=== PATIENT | male | born 1960 | race Caucasian/White ===

== ENCOUNTER 2022-08-30 07:19 | Day surgery (SDC) | payer MEDICARE, BC, SELFPAY ==
[2022-08-30] VITALS (15 sets, daily range): BP systolic 151–202; BP diastolic 89–115; PULSE 79–93; RESP 16; TEMP 36.5–36.9; O2SAT 92–99; BMI 26.4
[2022-08-30] MEDS: LACTATED RINGERS 1000 ML 1,000 ML 100 ML IV (07:45)
[2022-08-30] MEDS: SODIUM CHLORIDE 0.9 % (FLUSH) 10 ML SYRINGE IVF (07:45)
--- NOTE | 2022-08-30 07:53 | SUR.PREOP ---
HOME COVID TEST NEGATIVE.
--- NOTE | 2022-08-30 08:12 | W.ANESCHARGE ---
Anesthesia Charges Start Date/Time Anesthesia Start Date: 08/30/22 Anesthesia Start Time: 08:36 Stop Date/Time Anesthesia Stop Date: 08/30/22 Anesthesia Stop Time: 10:09
[2022-08-30] MEDS: CEFAZOLIN 2 GM INJ IVP (08:43)
--- NOTE | 2022-08-30 08:47 | SUR.OPER ---
PATIENT QUESTIONS ANSWERED SATISFACTORILY PREOPERATIVELY. PATIENT BROUGHT TO OR #4 PER CART.? Patient positioned supine on OR #4 bed.? The perioperative?team supported arms bilaterally on arm boards.? Final approval of positioning by surgeon.?
[2022-08-30] MEDS: BUPIVACAINE 0.5% 30 ML 7 ML INJECTION (08:52)
--- NOTE | 2022-08-30 10:07 | P.GSOP_ITS ---
Operative Note Date of procedure: 08/30/22 Pre-op diagnosis: 1. Symptomatic umbilical hernia. Post-op diagnosis: Same Type of Procedure: 1. Open umbilical hernia repair with mesh. Indications: 62-year-old male with history of cardiac transplant 2 years ago was seen in clinic for evaluation of symptomatic umbilical hernia. Patient's hernia was initially noticed it in 2014. Patient stated that the bulge was getting progressively larger and sometimes was painful. In the last several weeks prior to his visit in clinic he had 3 episodes where he had to lie down and reduce the hernia to relieve his pain. Patient denies any nausea or vomiting. On clinical exam patient had an easily noticeable umbilical bulge that was reducible. The fascial defect was palpated at approximately 3 cm. Given his clinical history and his physical exam, an open umbilical hernia repair was recommended. The procedure was discussed in detail. The risks associated the procedure including infection, bleeding, injury to intra-abdominal organs, and postoperative seroma were all discussed with the patient, and he agreed to proceed. Procedure Description: After discussing the risks and benefits of the procedure, the patient signed informed consent.? The operative site was marked and the patient was brought to the operating room and placed on the operating table in supine position.? Care was taken to pad the patient's pressure points.?? The patient was then intubated by anesthesia.?? The operative site was then prepped and draped in the usual sterile fashion.? A time-out was then performed. Local anesthetic was injected at the surgical site. A curvilinear skin incision was made with a scalpel just below umbilicus. Subcutaneous tissue was dissected with electrocautery down to the hernia sac and anterior fascia. The hernia sac was dissected off of the anterior fascia and subcutaneous fat around the fascial defect was dissected away from the fascial defect with cautery. I then developed preperitoneal space for mesh insertion. The fascial defect was approximately 3.3 cm. The hernia sac was entered with Metzenbaum scissors. No intra- abdominal organs were incarcerated in the hernia sac but small intestine was visualized near the fascial opening. The hernia sac was then excised with cautery. The hernia sac was closed with a running locking 2-0 Vicryl suture. Hemostasis throughout the case was achieved with cautery and Vicryl ties. An [address] mesh patch was then inserted into preperitoneal space and secured to the fascia using 0-0 Neurolon interrupted stitches. I examined my closure and no defects were identified between the fascia and the mesh. Fascia was re-approximated over the mesh with a running 2-0 Vicryl stitch. Additional local anesthetic was injected into subcutaneous tissues. Redundant thinned skin was excised with tenotomy scissors. An umbilicus was tacked down with interr upted 3-0 Vicryl stitches. Subdermal layer was closed with interrupted sutures using 3-0 Vicryl. Skin was closed with 4-0 Monocryl using subcuticular stitch. Steri strips were applied over the incision. I then placed a folded sterile 4x4 gauze over the incision and covered it with tape. All counts were correct at the end of the case. Patient tolerated the procedure well and was transferred to PACU without any complications. Findings: 3.3 cm fascial defect repaired with mesh patch. Anesthesia: GETA Surgeon: Shailesh Hernandez MD Estimated blood loss (mL): 5 Condition: stable Disposition: PACU
--- NOTE | 2022-08-30 10:15 | W.ANESCHARGE ---
Anesthesia Charges Start Date/Time Anesthesia Start Date: 08/30/22 Anesthesia Start Time: 08:36 Stop Date/Time Anesthesia Stop Date: 08/30/22 Anesthesia Stop Time: 10:09
[2022-08-30] MEDS: HYDROCODONE-ACETAMIN 5-325 MG 1 TAB PO (11:45)
== END 2022-08-30 12:20 | disposition home or self-care (01) ==
PROVIDERS: PCP Family Medicine; Visit Provider Surgery
PROC: (CPT 49593; principal; 2022-08-30 08:30)
DX: K42.9 Umbilical hernia without obstruction or gangrene (principal)
CPT/HCPCS: 49593; 00830; A9270; C1781; J0330; J0690; J2250; J2704; J2930; J3010; J3490; J7120

== ENCOUNTER 2023-03-19 06:55 | Emergency (ER) | payer MEDICARE, BC, SELFPAY ==
[2023-03-19 07:03] VITALS: BP 102/65; PULSE 80; RESP 17; TEMP 36.4; O2SAT 99; BMI 26.6
--- NOTE | 2023-03-19 07:21 | ED_ITS ---
HPI - General Adult General Chief complaint: Extremity Pain/Injury, Lower Stated complaint: left foot infection Time Seen by Provider: 03/19/23 07:14 History of Present Illness HPI narrative: Patient is a 63-year-old gentleman who presents with an 18 hour history of pain in the 1st MTP of the left foot. He has had no recent injuries no fevers no chills no night sweats. The pain is accompanied by redness and swelling of the joint. Patient has had no similar symptoms previously but is a heart transplant patient on 5 mg of prednisone as well as tacrolimus. Patient is otherwise been in his usual state of health with no major concerns. Related Data Home Medications Medication Instructions Recorded Confirmed acetaminophen 500 mg capsule 500 mg PO Q6H PRN 08/27/22 08/30/22 aspirin 81 mg capsule 81 mg PO DAILY 08/27/22 08/30/22 clonidine 0.3 mg/24 hr weekly 1 patch transdermal QWEEK 08/27/22 08/30/22 transdermal patch ([id number]-ZSE-6) famotidine 20 mg tablet 20 mg PO DAILY 08/27/22 08/30/22 levothyroxine 50 mcg capsule 50 mcg PO DAILY 08/27/22 08/30/22 mycophenolate mofetil 250 mg 750 mg PO BID 08/27/22 08/30/22 capsule (CellCept) posaconazole 100 mg tablet,delayed 200 mg PO DAILY 08/27/22 08/30/22 release (Noxafil) prednisolone 5 mg tablet 5 mg PO DAILY 08/27/22 08/30/22 sirolimus 0.5 mg tablet (Rapamune) 1 mg PO DAILY 08/27/22 08/30/22 sulfamethoxazole 400 1 tab PO TID 08/27/22 08/30/22 mg-trimethoprim 80 mg tablet (Bactrim) tacrolimus 0.5 mg capsule, 0.5 mg PO BID 08/27/22 08/30/22 immediate-release (Prograf) Previous Rx's Medication Instructions Recorded cephalexin 500 mg capsule 500 mg PO BID #20 caps 08/30/22 hydrocodone 5 mg-acetaminophen 325 1 tab PO Q6H PRN pain #25 tabs 08/30/22 mg tablet Allergies Allergy/AdvReac Type Severity Reaction Status Date / Time lisinopril Allergy Unknown Verified 08/30/22 07:54 Review of Systems Status of ROS: Reports: 10 or more systems reviewed and unremarkable except as noted in History and below 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 EYES: No scleral icterus. LYMPH: No supraclavicular or cervical lymphadenopathy. SKIN: Visible skin seen during exam normal or with benign process only. EXT: Redness and pain as well as mild swelling noted in the 1st MTP left foot. No other significant findings. HEART: Regular rate and rhythm with no murmurs, rubs, or gallops. LUNGS: Clear to auscultation bilaterally with no crackles or wheezes. ABD: Soft, non tender, non distended. PSYCH: Good eye contact, speech is not pressured. Const: Vital Signs, click to edit/add: Vital Signs - 24 hr 03/19/23 07:03 Temperature 97.5 F L Pulse Rate [Pulse Oximeter] 80 Respiratory Rate 17 Blood Pressure [Ri ght Upper Arm] 102/65 Pulse Oximetry 99 Oxygen Delivery Me thod Room Air Course Course ED Course: Patient seen examined. Vital Signs Vital signs: Initial Vital Signs Temperature 97.5 F L 03/19/23 07:03 Temperature Source Temporal Artery Scan 03/19/23 07:03 Pulse Rate 80 03/19/23 07:03 Respiratory Rate 17 03/19/23 07:03 Blood Pressure 102/65 03/19/23 07:03 Blood Pressure Mean 77 03/19/23 07:03 Pulse Oximetry 99 03/19/23 07:03 Oxygen Delivery Method Room Air 03/19/23 07:03 Vital Signs Temperature 97.5 F L 03/19/23 07:03 Pulse Rate 80 03/19/23 07:03 Respiratory Rate 17 03/19/23 07:03 Blood Pressure 102/65 03/19/23 07:03 Pulse Oximetry 99 03/19/23 07:03 Oxygen Delivery Method Room Air 03/19/23 07:03 Temperature 97.5 F L 03/19/23 07:03 Pulse Rate 80 03/19/23 07:03 Respiratory Rate 17 03/19/23 07:03 Blood Pressure 102/65 03/19/23 07:03 Pulse Oximetry 99 03/19/23 07:03 Oxygen Delivery Method Room Air 03/19/23 07:03 Medical Decision Making MDM Narrative Medical decision making narrative: Patient is 63-year-old gentleman who presents with gout in the 1st MTP the left foot. No signs of infection. Patient is on low-dose prednisone as well as his other rejection regiment. Patient will be treated with increasing prednisone to 20 mg twice daily for 5 days before returning to 5 mg daily. I did recommend follow-up with his transplant team if symptoms return. All questions were answered. Discharge Plan Discharge Clinical Impression: Gout Patient Disposition: Home, Self-Care Condition: Stable Instructions: Gout (ED) Additional Instructions: Prednisone as directed Follow-up with your doctor as needed Tylenol as needed for pain. Activity Level: No Restrictions Discharge Diet: Regular Prescriptions: No Action acetaminophen 500 mg capsule 500 mg PO Q6H PRN aspirin 81 mg capsule 81 mg PO DAILY clonidine [Xajhcadn-FRC-7] 0.3 mg/24 hr patch weekly 1 patch transdermal QWEEK famotidine 20 mg tablet 20 mg PO DAILY levothyroxine 50 mcg capsule 50 mcg PO DAILY mycophenolate mofetil [CellCept] 250 mg capsule 750 mg PO BID posaconazole [Noxafil] 100 mg tablet,delayed release (DR/EC) 200 mg PO DAILY prednisolone 5 mg tablet 5 mg PO DAILY Patient Comments: Take with 3 (1mg tab of prednisone) to equal 8mg. sirolimus [Rapamune] 0.5 mg tablet 1 mg PO DAILY sulfamethoxazole-trimethoprim [Bactrim] 400-80 mg tablet 1 tab PO TID tacrolimus [Prograf] 0.5 mg capsule 0.5 mg PO BID hydrocodone-acetaminophen 5-325 mg tablet 1 tab PO Q6H PRN (Reason: pain) Qty: 25 0RF cephalexin 500 mg capsule 500 mg PO BID Qty: 20 0RF Follow Up/Referrals: Kaushal Salomon MD [Primary Care Provider] - Stand Alone Forms: [facility] Info Instructions
== END 2023-03-19 07:44 | disposition home or self-care (01) ==
PROVIDERS: Emergency Provider Internal Medicine; PCP Family Medicine
DX: M10.9 Gout, unspecified (principal)
CPT/HCPCS: 99283

== ENCOUNTER 2023-09-26 17:50 | Emergency (ER) | payer MEDICARE, BC, SELFPAY ==
[2023-09-26 18:01] VITALS: BP 137/73; PULSE 91; RESP 18; TEMP 36.4; O2SAT 97; BMI 26.5
--- NOTE | 2023-09-26 18:44 | ED.GENADULT ---
HPI - General Adult General Chief complaint: Extremity Pain/Injury, Lower Stated complaint: Both feet gout-low grade temp Time Seen by Provider: 09/26/23 18:14 History of Present Illness HPI narrative: This 63-year-old male comes in with pain and swelling with erythema in both great toes. He does have a history of gout. These symptoms have arisen over the past couple days but he states that he has been feeling poorly for almost a couple weeks since discontinuing prednisone. He has been on prednisone long-term because of a heart transplant that occurred 3 years ago. He was instructed to discontinue prednisone in preparation for a heart biopsy and a bunch of labs. The patient was scheduled to have this done 2 days from now but he has canceled these plans because he is not feeling well. He states that he has poor appetite. He is feeling tired. He does have some agitation or anxiety in word LEEP. Related Data Home Medications Medication Instructions Recorded Confirmed acetaminophen 500 mg capsule 500 mg PO Q6H PRN 08/27/22 08/30/22 aspirin 81 mg capsule 81 mg PO DAILY 08/27/22 09/26/23 clonidine 0.3 mg/24 hr weekly 1 patch transdermal QWEEK 08/27/22 09/26/23 transdermal patch (Rypcmteg-WQW-9) famotidine 20 mg tablet 20 mg PO DAILY 08/27/22 09/26/23 levothyroxine 50 mcg capsule 50 mcg PO DAILY 08/27/22 09/26/23 mycophenolate mofetil 250 mg 750 mg PO BID 08/27/22 09/26/23 capsule (CellCept) posaconazole 100 mg tablet,delayed 200 mg PO DAILY 08/27/22 09/26/23 release (Noxafil) prednisolone 5 mg tablet 5 mg PO DAILY 08/27/22 08/30/22 sirolimus 0.5 mg tablet (Rapamune) 1 mg PO DAILY 08/27/22 08/30/22 sulfamethoxazole 400 1 tab PO TID 08/27/22 08/30/22 mg-trimethoprim 80 mg tablet (Bactrim) tacrolimus 0.5 mg capsule, 0.5 mg PO BID 08/27/22 09/26/23 immediate-release (Prograf) losartan 50 mg tablet 50 mg PO DAILY 09/26/23 09/26/23 Previous Rx's Medication Instructions Recorded cephalexin 500 mg capsule 500 mg PO BID #20 caps 08/30/22 hydrocodone 5 mg-acetaminophen 325 1 tab PO Q4-6H PRN pain #15 tabs 09/26/23 mg tablet methylprednisolone 4 mg tablets in See Rx Instructions PO .COMPLEX 09/26/23 a dose pack (Medrol (Max)) #21 ea Allergies Allergy/AdvReac Type Severity Reaction Status Date / Time lisinopril Allergy Unknown Verified 08/30/22 07:54 Review of Systems Status of ROS: Reports: 10 or more systems reviewed and unremarkable except as noted in History and below Narrative: Constitutional: No fevers, no weight gain or loss. Eyes: No discharge. No vision changes. HENT: No congestion, no sore throat, no ear pain. Cardiovascular: No chest pain, no palpitations. Respiratory: No shortness of breath, no wheezes, no cough. Gastrointestinal: No abdominal pain, no vomiting, no diarrhea. Genitourinary: No dysuria, no hematuria. Musculoskeletal: Normal range of motion. Pain with swelling and redness in both great toes. Skin: No rashes, no pruritis. Neurological: No dizziness, weakness, sensory change, speech change. Endo/Heme/Allergies: No bruising or bleeding. No polydipsia. Pysch: no suicidality, no anxiety, no insomnia. All other systems reviewed and are negative. [facility] Medical History Chronic kidney disease, stage 4 (severe) ?N18.4 - Chronic kidney disease, stage 4 (severe) (ICD-10) Hyperlipidemia ?E78.5 - Hyperlipidemia, unspecified (ICD-10) 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 - Pulmonary mucormycosis (ICD-10) Surgical History Status post heart transplant ?Z94.1 - Heart transplant status (ICD-10) Social History Smoking Status: Former smoker What tobacco products do you use: cigars Do you use any of these nicotine containing products: None How often do you have a drink containing alcohol: never How often do you have six or more drinks on one occasion: Never AUDIT-C Alcohol total score: 0 Non-prescribed substance use: denies use Caffeine: Yes (SODA & OFFEE DAILY) Exam Narrative: Exam Narrative: Constitutional: Well-developed, well-nourished, no acute distress. HEENT: Normocephalic, atraumatic. Neck: Normal range of motion. Nontender. Supple. Heart: Regular. No murmurs. Normal rate. Intact distal pulses. Lungs: Clear to auscultation. No chest discomfort. No wheezes, rhonchi, or rales. Abdomen: Normal bowel sounds. Nontender. No rebound tenderness. Genitalia: Deferred. Back: No midline tenderness. Normal range of motion. Extremities: Normal range of motion. The left great toe has erythema with swelling and the right great toe has swelling but not much erythema. Skin: Intact. No rash. Warm. No erythema or pallor. Neurologic: No altered sensation. No weakness. Alert and oriented. Psychiatric: No suicidality. No anxiety or depression. No insomnia. Nursing notes and vitals signs are reviewed. Const: Vital Signs, click to edit/add: Vital Signs - 24 hr 09/26/23 18:01 Temperature 97.5 F L Pulse Rate [Right Pulse Oximeter] 91 Respiratory Rate 18 Blood Pressure [Ri ght Upper Arm] 137/73 Pulse Oximetry 97 Oxygen Delivery Me thod Room Air Course Vital Signs Vital signs: Initial Vital Signs Temperature 97.5 F L 09/26/23 18:01 Temperature Source Temporal Artery Scan 09/26/23 18:01 Pulse Rate 91 09/26/23 18:01 Respiratory Rate 18 09/26/23 18:01 Blood Pressure 137/73 09/26/23 18:01 Blood Pressure Mean 94 09/26/23 18:01 Blood Pressure Position Sitting 09/26/23 18:01 Pulse Oximetry 97 09/26/23 18:01 Oxygen Delivery Method Room Air 09/26/23 18:01 Vital Signs Temperature 97.5 F L 09/26/23 18:01 Pulse Rate 91 09/26/23 18:01 Respiratory Rate 18 09/26/23 18:01 Blood Pressure 137/73 09/26/23 18:01 Pulse Oximetry 97 09/26/23 18:01 Oxygen Delivery Method Room Air 09/26/23 18:01 Temperature 97.5 F L 09/26/23 18:01 Pulse Rate 91 09/26/23 18:01 Respiratory Rate 18 09/26/23 18:01 Blood Pressure 137/73 09/26/23 18:01 Pulse Oximetry 97 09/26/23 18:01 Oxygen Delivery Method Room Air 09/26/23 18:01 Medical Decision Making MDM Narrative Medical decision making narrative: This 63-year-old male comes in with nonspecific complaints except for specifying symptoms of gout in both of his great toes. He does have a history of gout and on exam his symptoms appear to be a gout flare up. He does not report any injury event. He has other nonspecific complaints that in my opinion seem to be related to discontinuing prednisone. He states that these symptoms began soon after stopping prednisone in preparation for some tests. He has canceled these appointments and comes in for treatment and evaluation. He does arrive with normal vital signs. I did discuss lab and imaging options but indicated that it seems likely that he has some adrenal insufficiency and is hungry so to speak for steroid. This happens to be a typical treatment for his gout symptoms. In a process of shared decision making the patient declined any labs or imaging at this time. He did receive an oral dose of dexamethasone 10 mg and prescriptions are provided for Medrol Dosepak and [place]. I did describe signs and symptoms that would indicate a need for return and re-evaluation. Discharge Plan Discharge Additional Instructions: Take medication as prescribed. Follow up with MD for ongoing management. Return if symptoms are persistent or worsening. Prescriptions: New hydrocodone-acetaminophen 5-325 mg tablet 1 tab PO Q4-6H PRN (Reason: pain) Qty: 15 0RF methylprednisolone [Medrol (Max)] 4 mg tablets,dose pack See Rx Instructions .ROUTE .COMPLEX Qty: 21 0RF Rx Instructions: orally per package directions No Action acetaminophen 500 mg capsule 500 mg PO Q6H PRN aspirin 81 mg capsule 81 mg PO DAILY clonidine [Ktcmhkvb-CVA-0] 0.3 mg/24 hr patch weekly 1 patch transdermal QWEEK famotidine 20 mg tablet 20 mg PO DAILY levothyroxine 50 mcg capsule 50 mcg PO DAILY mycophenolate mofetil [CellCept] 250 mg capsule 750 mg PO BID posaconazole [Noxafil] 100 mg tablet,delayed release (DR/EC) 200 mg PO DAILY prednisolone 5 mg tablet 5 mg PO DAILY Patient Comments: Take with 3 (1mg tab of prednisone) to equal 8mg. sirolimus [Rapamune] 0.5 mg tablet 1 mg PO DAILY sulfamethoxazole-trimethoprim [Bactrim] 400-80 mg tablet 1 tab PO TID tacrolimus [Prograf] 0.5 mg capsule 0.5 mg PO BID cephalexin 500 mg capsule 500 mg PO BID Qty: 20 0RF losartan 50 mg tablet 50 mg PO DAILY Follow Up/Referrals: Kaushal Salomon MD [Primary Care Provider] - Stand Alone Forms: [employer] Info Instructions
[2023-09-26] MEDS: dexAMETHasone 10 MG/ML inj PO (18:56)
== END 2023-09-26 19:05 | disposition home or self-care (01) ==
PROVIDERS: Emergency Provider Emergency Medicine Emergency Medical Services; PCP Family Medicine
DX: M10.9 Gout, unspecified (principal)
CPT/HCPCS: 99283; 99284; J1100

== ENCOUNTER 2024-08-30 17:01 | Emergency (ER) | payer MEDICARE, BC, SELFPAY ==
[2024-08-30 17:04] VITALS: BP 144/87; PULSE 89; RESP 18; TEMP 36.6; O2SAT 98; BMI 26.4
--- OUTSIDE RECORDS SUMMARY | 2024-08-30 17:39 | XMS_ITS | Encounter Summary ---
Author Organization [facility] Address [address] [place] [address] Care Team Providers Care Ux Design Manager Name Role Phone Elsewhere, Pcp Primary Care Provider Unavailabl e Reason for Visit * Reason Onset Date Comments Med Refill 07/18/2024 Encounter Details Date Type Department Care Team (Late st Contact Info) Description 07/18/2024 [facility] [place], [place] [address] [place] [phone] Audrey Guerrero R.N. [address] [place] [phone] Med Refill Social History Tobacco Use Types Packs/Day Years Used Date Smoking Tobacco: Former Cigarettes Q uit: 04/17/2018 Smokeless Tobacco: Never Alcohol Use Standard Drinks/Week Comments Not Currently 0 (1 standard drink = 0.6 oz pur e alcohol) [facility] Utilities Answer Date Recorded In the past 12 months has th e electric, gas, oil, or water [employer] threatened to shut off services in your home? No 09/28/2023 Humiliation, Afraid, Rape, and Kick questionnair e Answer Date Recorded Within the last year, have y ou been afraid of your partner or ex-partner? No 08/20/2022 Within the last year, have y ou been humiliated or emotionally abused in other ways by your partner or ex-partner? No Within the last year, have y ou been kicked, hit, slapped, or otherwise physically hurt by your partner or ex-partner? No 08/20/2022 Within the last year, have y ou been raped or forced to have any kind of sexual activity by your partner or ex-partner? No 08/20/2022 Social Connection and Isolat ion Panel [NHANES] Answer Date Recorded In a typical week, how many times do you talk on the phone with family, friends, or neighbors? More than three times a week 08/20/2022 How often do you get togethe r with friends or relatives? Once a week 08/20/2022 How often do you attend chur ch or hinduism services? Never 08/20/2022 Do you belong to any clubs o r organizations such as orthodox groups, unions, fraternal or athletic groups, or school groups? No 08/20/2022 How often do you attend meet ings of the clubs or organizations you belong to? Never 08/20/2022 Are you , , di vorced, , never , or living with a partner? 08/20/2022 AUDIT-C Answer Date Recorded Q1: How often do you have a drink containing alc ohol? Never 08/20/2022 Average Number of Drinks Not on file 023 Frequency of Binge Drinking Not on file 08/04 Overall Financial Resource Strain (CARDIA) Answe r Date Recorded How hard is it for you to pa y for the very basics like food, housing, medical care, and heating? Not very hard 08/20/2022 PHQ-2 Answer Date Recorded PHQ-2 Score 0 09/30/2021 [facility] of Occupat ional Health - Occupational Stress Questionnaire Answer Date Recorded Do you feel stress - tense, restless, nervous, or anxious, or unable to sleep at night because your mind is troubled all the time - these days? Not at all 08/20/2022 Exercise Vital Sign Answer Date Recorde d On average, how many days pe r week do you engage in moderate to strenuous exercise (like a brisk walk)? 4 days 09/28/2023 On average, how many minutes do you engage in exercise at this level? 40 min 09/28/2023 Hunger Vital Sign Answer Date Recorded Within the past 12 months, y ou worried that your food would run out before you got the money to buy more. Never true 09/28/19 24 Within the past 12 months, t he food you bought just didn't last and you didn't have money to get more. Never true 09/28/2023 PRAPARE - Transportation Answer Date Re corded In the past 12 months, has l ack of transportation kept you from medical appointments or from getting medications? No 09/02 In the past 12 months, has l ack of transportation kept you from meetings, work, or from getting things needed for daily living? No 09/28/2023 Depression Answer Date Recor ded PHQ-9 Total Score (max 27) 1 03/06 Nutrition Answer Date Recorded On average, how many serving s of fruits and vegetables do you eat per day (serving size is equal to 1 cup or approximately the size of a tennis ball)? 0-2 09/28/2023 Dental Answer Date Recorded Dental: Regular Dentist Yes 06/01/20 Employment Answer Date Recorded Employment status Retired 09/28/2023 Housing Stability Answer Date Recorded What is your living situation today? I have a [facility] place to live 09/28/2023 Education Answer Date Recorded What is the highest level of school you have completed or the highest degree you have received? Associate degree: occupational, technical, or vocational program 03/16/2020 Sex and Gender Information Value Date Recorded Sex Assigned at Male 03/23/2021 4:58 PM CDT Legal Sex Male 8:21 PM APPLIANCE TESTER Gender Identity Male 06/01/2018 2:20 PM APPLIANCE TESTER Sexual Orientation Straight 06/01/2018 2: 20 PM APPLIANCE TESTER documented as of this encounter Plan of Treatment Upcoming Encounters Date Type Department Care Team (Late st Contact Info) Description 09/11/2024 10:20 AM CDT Appointment Department of Laboratory Medicine in [place] [address] [place] [address] Jesus Alberto Wong M.D. [address] [place] [address] 09/21/2024 10:00 AM CDT Nurse Only Eduard Sanderson [place] [facility] in [place], [place] [address] [place] [address] Anderson Hewitt M.D. [address] [place] [phone] Audrey Guerrero R.N. [address] [place] [phone] 09/25/2024 6:20 AM CDT Lab Department of Laboratory Medicine and Pathology, [place], [place] [address] [place] [address] Anderson Hewitt M.D. [address] [place] [phone] 09/25/2024 6:30 AM CDT Lab Department of Laboratory Medicine and Pathology, [facility] in [place], [place] [address] [place] [address] Anderson Hewitt M.D. [address] [place] [phone] 09/25/2024 6:40 AM CDT Lab Department of Laboratory Medicine and Pathology, [facility] in [place], [place] [address] [place] [address] Anderson Hewitt M.D. [address] [place] [phone] 09/25/2024 7:00 AM CDT Appointment Department of Radiology, [facility], in [place], [place] [address] [place] [address] Anderson Hewitt M.D. [address] [place] [phone] 09/25/2024 8:00 AM CDT Appointment Department of Radiology, [facility], in [place], [place] [address] [place] [address] Anderson Hewitt M.D. [address] [place] [phone] 09/25/2024 10:20 AM CDT Ancillary Procedure Department of Cardiovascular Medicine in [place], [place] [address] [place] [address] Anderson Hewitt M.D. [address] [place] [phone] 09/25/2024 2:45 PM CDT Appointment Department of Cardiovascular Diseases in [place], [place] [address] [place] [address] Anderson Hewitt M.D. [address] [place] [phone] 09/26/2024 8:50 AM CDT Appointment Department of Cardiovascular Diseases in [place], [place] [address] [place] [address] Anderson Hewitt M.D. [address] [place] [phone] 09/26/2024 2:15 PM CDT [facility] in [place], [place] [address] [place] [address] Anderson Hewitt M.D. [address] [place] [phone] 10/17/2024 10:40 AM CDT Comprehensive Visit Department of Dermatology in [place], [place] [address] [place] [address] Zoya Chery M.D. [address] [place] [address] 10/24/2024 10:30 AM CDT Appointment Department of Laboratory Medicine in [address] [address] Anderson Hewitt M.D. 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
--- OUTSIDE RECORDS SUMMARY | 2024-08-30 17:39 | XMS_ITS | Encounter Summary ---
Author Organization [facility] Address [address] [place] [address] Care Team Providers Care Kitchen Steward/Stewardess Name Role Phone Elsewhere, Pcp Primary Care Provider Unavailabl e Encounter Details Date Type Department Care Team (Late st Contact Info) Description 07/18/2024 Orders Only Eduard Sanderson [place] [facility] in [place], [place] [address] [place] [phone] Audrey Guerrreo R.N. [address] [place] [phone] Transplant Heart (HCC) (Primary Dx) Social History Tobacco Use Types Packs/Day Years Used Date Smoking Tobacco: Former Cigarettes Q uit: 04/17/2018 Smokeless Tobacco: Never Alcohol Use Standard Drinks/Week Comments Not Currently 0 (1 standard drink = 0.6 oz pur e alcohol) [facility] Utilities Answer Date Recorded In the past 12 months has th e electric, gas, oil, or water company threatened to shut off services in your [...] often do you attend chur ch or anabaptist services? Never 08/20/2022 Do you belong to any clubs o r organizations such as caodaism groups, unions, fraternal or athletic groups, or [...] Answer Date Recorded PHQ-2 Score 0 09/30/2021 [facility] of Occupat ional Health - Occupational Stress [...] your living situation today? I have a [facility] place to live 09/28/2023 Education Answer Date Recorded What is the highest level of school you have completed or the highest degree you have received? Associate degree: occupational, technical, or vocational program 03/16/2020 Sex and Gender Information Value Date Recorded Sex Assigned at Male 03/23/2021 4:58 PM CDT Legal Sex Male 8:21 PM CRANIOLOGIST Gender Identity Male 06/01/2018 2:20 PM CRANIOLOGIST Sexual Orientation Straight 06/01/2018 2: 20 PM CRANIOLOGIST documented as of this encounter Plan of Treatment Upcoming Encounters Date Type Department Care Team (Late st Contact Info) Description 09/11/2024 10:20 AM CDT Appointment Department of Laboratory Medicine in [address] [address] Jesus Alberto Wong M.D. [address] [place] [address] 09/21/2024 10:00 AM CDT Nurse Only [facility] in [place], [place] [address] [place] [address] Anderson Hewitt M.D. [address] [place] [phone] Audrey Guerrero R.N. [address] [place] [phone] 09/25/2024 6:20 AM CDT Lab Department of Laboratory Medicine and Pathology, [place], [place] [address] [place] [address] Anderson Hewitt M.D. [address] [place] [phone] 09/25/2024 6:30 AM CDT Lab Department of Laboratory Medicine and Pathology, [facility] in [place], [place] [address] [place] [address] Anderson Hewitt M.D. [address] [place] [phone] 09/25/2024 6:40 AM CDT Lab Department of Laboratory Medicine and Pathology, [facility] in [place], [place] [address] [place] [address] Anderson Hewitt M.D. [address] [place] [phone] 09/25/2024 7:00 AM CDT Appointment Department of Radiology, [facility] in [place], [place] [address] [place] [address] Anderson Hewitt M.D. [address] [place] [phone] 09/25/2024 8:00 AM CDT Appointment Department of Radiology, [facility], in [place], [place] [address] [place] [address] Anderson Hewitt M.D. [address] [place] [phone] 09/25/2024 10:20 AM CDT Ancillary Procedure Department of Cardiovascular Medicine in [place], [place] [address] [place] [phone] Anderson Hewitt M.D. [address] [place] [phone] 09/25/2024 2:45 PM CDT Appointment Department of Cardiovascular Diseases in [place], [place] [address] [place] [address] Anderson Hewitt M.D. [address] [place] [phone] 09/26/2024 8:50 AM CDT Appointment Department of Cardiovascular Diseases in [place], [place] [address] [place] [phone] Anderson Hewitt M.D. [address] [place] [phone] 09/26/2024 2:15 PM CDT [facility] in [place], [place] [address] [place] [phone] Anderson Hewitt M.D. [address] [place] [phone] 10/17/2024 10:40 AM CDT Comprehensive Visit Department of Dermatology in [place], [place] [address] [place] [phone] Zoya Chery M.D. [address] [place] [phone] 10/24/2024 10:30 AM CDT Appointment Department of Laboratory Medicine in [place], [place] [address] [facility] [place] [address] Anderson Hewitt M.D. [address] [place] [address] documented as of this encounter Results * Posaconazole (Noxafil), Level (08/24/2024 11:22 AM CRANIOLOGIST) Posaconazole, S 2340 >700 ng/mL 08/26/2024 2:00 PM CRANIOLOGIST [facility] Comment: ----ADDITIONAL INFORMATION---- This test was developed and its performance characteristics determined by [facility] in a manner consistent with CLIA requirements. This test has not been cleared or approved by the U.S. Food and Drug Administration. Blood (Blood, Venous) 08/24/2024 11:22 AM CRANIOLOGIST 08/25/2024 7:33 AM CRANIOLOGIST us Jesus Alberto Wong M.D. LAB BLOOD NON ADD-ON Final Result [facility] [address] [place] [address] [facility] [address] [place] [address] [place] [address] documented in this encounter Visit Diagnoses Diagnosis Transplant Heart (HCC)- Primary documented in this encounter Additional Health Concerns Infection Onset Date Last Indicated Resolved Time Protective Environment 10/12/2022 10/12/2022 Assessment Noted Time PHQ-9 Depression Total Score: 1 03/06/20 21 2:01 PM CDT documented as of this encounter Care Teams Kitchen Steward/Stewardess Relationship Specialty Start Date End Date Elsewhere, Pcp PCP - General Family Medicine 02/20/21 documented as of this encounter
--- OUTSIDE RECORDS SUMMARY | 2024-08-30 17:39 | XMS_ITS | Encounter Summary ---
Author Organization [facility] Address [address] [place] [address] Care Team Providers Care Mill Tender Warm Up Name Role Phone Elsewhere, Pcp Primary Care Provider Unavailabl e Encounter Details Date Type Department Care Team (Late st Contact Info) Description 07/11/2024 Orders Only Eduard Sanderson [place] [facility]eneration in [place], [place] [address] [place] [phone] Audrey Guerrero R.N. [address] [place] [phone] Transplant Heart (HCC) (Primary Dx) Social History Tobacco Use Types Packs/Day Years Used Date Smoking Tobacco: Former Cigarettes Q uit: 04/17/2018 Smokeless Tobacco: Never Alcohol Use Standard Drinks/Week Comments Not Currently 0 (1 standard drink = 0.6 oz pur e alcohol) [facility] Utilities Answer Date Recorded In the past [...] any clubs o r organizations such as confucianism groups, unions, fraternal or athletic groups, or [...] Answer Date Recorded PHQ-2 Score 0 09/30/2021 [facility] of Occupat ional Health - Occupational Stress [...] your living situation today? I have a [facility] place to live 09/28/2023 Education Answer Date Recorded What is the highest level of school you have completed or the highest degree you have received? Associate degree: occupational, technical, or vocational program 03/16/2020 Sex and Gender Information Value Date Recorded Sex Assigned at Male 03/23/2021 4:58 PM CDT Legal Sex Male 8:21 PM BANK SALES AND SERVICE MANAGER Gender Identity Male 06/01/2018 2:20 PM BANK SALES AND SERVICE MANAGER Sexual Orientation Straight 06/01/2018 2: 20 PM BANK SALES AND SERVICE MANAGER documented as of this encounter Plan of Treatment Upcoming Encounters Date Type Department Care Team (Late st Contact Info) Description 09/11/2024 10:20 AM CDT Appointment Department of Laboratory Medicine in [address] [address] Jesus Alberto Wong M.D. [address] [place] [address] 09/21/2024 10:00 AM CDT Nurse Only Eduard murguia [facility] in [place], [place] [address] [place] [address] Anderson Hewitt M.D. [address] [place] [phone] Audrey Guerrero R.N. [address] [place] [phone] 09/25/2024 6:20 AM CDT Lab Department of Laboratory Medicine and Pathology, [place], [place] [address] [place] [address] Anderson Hewitt M.D. [address] [place] [phone] 09/25/2024 6:30 AM CDT Lab Department of Laboratory Medicine and Pathology, [facility] in [place], [place] [address] [place] [address] Anderson Hewitt M.D. [address] [place] [phone] 09/25/2024 6:40 AM CDT Lab Department of Laboratory Medicine and Pathology, [facility] in [place], [place] [address] [place] [address] Anderson Hewitt M.D. [address] [place] [phone] 09/25/2024 7:00 AM CDT Appointment Department of Radiology, [facility] in [place], [place] [address] [place] [address] Anderson Hewitt M.D. [address] [place] [phone] 09/25/2024 8:00 AM CDT Appointment Department of Radiology, [facility], in [place], [place] [address] [place] [address] Anderson Hewitt M.D. [address] [place] [phone] 09/25/2024 10:20 AM CDT Ancillary Procedure Department of Cardiovascular Medicine in [place], [place] [address] [phone] Anderson Hewitt M.D. [address] [place] [phone] 09/25/2024 2:45 PM CDT Appointment Department of Cardiovascular Diseases in [place], [place] [address] [place] [address] Anderson Hewitt M.D. [address] [place] [phone] 09/26/2024 8:50 AM CDT Appointment Department of Cardiovascular Diseases in [place], [place] [address] [phone] Anderson Hewitt M.D. [address] [place] [phone] 09/26/2024 2:15 PM CDT [facility] in [place], [place] [address] [phone] Anderson Hewitt M.D. [address] [place] [phone] 10/17/2024 10:40 AM CDT Comprehensive Visit Department of Dermatology in [place], [place] [address] [phone] Zoya Chery M.D. [address] [place] [phone] 10/24/2024 10:30 AM CDT Appointment Department of Laboratory Medicine in [place] [address] [place] [phone] Anderson Hewitt M.D. [address] [place] [address] documented as of this encounter Results * Tacrolimus, Trough (07/25/2024 10:39 AM BANK SALES AND SERVICE MANAGER) Tacrolimus, Trough 5.3 5.0-15.0 (Trough) ng/mL 07/26/2024 10:37 AM BANK SALES AND SERVICE MANAGER [facility] Comment: ----ADDITIONAL INFORMATION---- Target steady-state trough concentrations vary depending on the type of transplant, concomitant immunosuppression, clinical/institutional protocols, and time post-transplant. Results should be interpreted in conjunction with this clinical information and any physical signs/symptoms of rejection/toxicity. Testing performed by Liquid Chromatography-Tandem Mass Spectrometry (LC-MS/MS). This test was developed and its performance characteristics determined by [facility] in a manner consistent with CLIA requirements. This test has not been cleared or approved by the U.S. Food and Drug Administration. Blood (Blood, Venous) 07/25/2024 10:39 AM BANK SALES AND SERVICE MANAGER 07/26/2024 7:30 AM BANK SALES AND SERVICE MANAGER us Dom Muller M.D. LAB BLOOD NON ADD-ON Jerica l Result [facility] [address] [place] [address] [facility] [address] [place] [address] [place] [id number] * (ABNORMAL) Basic Metabolic Panel (07/25/2024 10:39 AM BANK SALES AND SERVICE MANAGER) Potassium, P 5.4(H) 3.6 - 5.2 mmol/L 07/25/2024 4:03 PM BANK SALES AND SERVICE MANAGER [facility] Sodium, P 136 135 - 145 mmol/L 07/25/2024 4:03 PM BANK SALES AND SERVICE MANAGER [facility] Chloride, P 105 98 - 107 mmol/L 07/25/2024 4:03 PM BANK SALES AND SERVICE MANAGER [facility] Bicarbonate, P 21(L) 22 - 29 mmol/L 07/25/2024 4:03 PM BANK SALES AND SERVICE MANAGER [facility] Anion Gap, P 10 7 - 15 07/25/2024 4:03 PM BANK SALES AND SERVICE MANAGER [facility] BUN (Blood Urea Nitrogen), P 33(H) 8 - 24 mg/dL 07/25/2024 4:03 PM BANK SALES AND SERVICE MANAGER [facility] Creatinine 2.28(H) 0.74 - 1.35 mg/dL 07/25/2024 4:03 PM BANK SALES AND SERVICE MANAGER [facility] Estimated GFR (eGFR) 31(L) >=60 mL/min/BSA 07/25/2024 4:03 PM BANK SALES AND SERVICE MANAGER [facility] Comment: Estimated GFR calculated using the 2020 CKD_EPI creatinine equation. Calcium, Total, P 9.0 8.8 - 10.2 mg/dL 07/25/2024 4:03 PM BANK SALES AND SERVICE MANAGER [facility] Glucose, P 95 70 - 140 mg/dL 07/25/2024 4:03 PM BANK SALES AND SERVICE MANAGER [facility] Blood (Blood, Venous) 07/25/2024 10:39 AM BANK SALES AND SERVICE MANAGER 07/25/2024 1:03 PM BANK SALES AND SERVICE MANAGER us Dom Muller M.D. LAB BLOOD ADD-ON Final Re sult [facility] [address] [place] [address], [facility] [address] [place] [address] documented in this encounter Visit Diagnoses Diagnosis Transplant Heart (HCC)- Primary documented in this encounter Additional Health Concerns Infection Onset Date Last Indicated Resolved Time Protective Environment 10/12/2022 10/12/2022 Assessment Noted Time PHQ-9 Depression Total Score: 1 03/06/20 21 2:01 PM CDT documented as of this encounter Care Teams Mill Tender Warm Up Relationship Specialty Start Date End Date Elsewhere, Pcp PCP - General Family Medicine 02/20/21 documented as of this encounter
--- OUTSIDE RECORDS SUMMARY | 2024-08-30 17:39 | XMS_ITS | Encounter Summary ---
Author Organization [facility] Address [address] [place] [address] Care Team Providers Care Rolled Oats Mill Operator Name Role Phone Elsewhere, Pcp Primary Care Provider Unavailabl e Reason for Visit * Reason Onset Date Comments Labs Only 07/26/2024 Encounter Details Date Type Department Care Team (Late st Contact Info) Description 07/26/2024 Clinical Communication [facility] in [place], [place] [address] [place] [phone] Audrey Guerrero R.N. [address] [place] [phone] Labs Only Social History Tobacco Use Types Packs/Day Years Used Date Smoking Tobacco: Former Cigarettes Q uit: 04/17/2018 Smokeless Tobacco: Never Alcohol Use Standard Drinks/Week Comments Not Currently 0 (1 standard drink = 0.6 oz pur e alcohol) [facility] Utilities Answer Date Recorded In the past [...] often do you attend chur ch or zoroastrianism services? Never 08/20/2022 Do you belong to any clubs o r organizations such as restorationism groups, unions, fraternal or athletic groups, or [...] Answer Date Recorded PHQ-2 Score 0 09/30/2021 [facility] [place] of Occupat ional Health - Occupational Stress [...] your living situation today? I have a [facility] place to live 09/28/2023 Education Answer Date Recorded What is the highest level of school you have completed or the highest degree you have received? Associate degree: occupational, technical, or vocational program 03/16/2020 Sex and Gender Information Value Date Recorded Sex Assigned at Male 03/23/2021 4:58 PM CDT Legal Sex Male 8:21 PM LOCKER ATTENDANT Gender Identity Male 06/01/2018 2:20 PM LOCKER ATTENDANT Sexual Orientation Straight 06/01/2018 2: 20 PM LOCKER ATTENDANT documented as of this encounter Miscellaneous Notes * Telephone Encounter - Audrey Guerrero R.N. 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 Creatinine somewhat elevated, so hesitant to increase tacro. 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 Consider dose increase to Posaconazole DR 300 mg daily and rechecking level in 1 month (scheduled for 08/20). Recent Labs 07/25/24 1039 07/10/24 1039 HGB -- 11.7 L HCT -- 36.4 L WBC -- 7.5 NEUTROPHILS -- 5.44 CREATININE 2.28 H 2.25 H PLT -- 185 GLUCOSE 95 89 NA 136 138 KPLASMA 5.4 H 5.3 H MG -- 2.0 BICARB 21 L 24 BUN 33 H 29 H Immunosuppressant: Recent Labs 07/25/24 1039 07/10/24 1039 TACROLIMUS 5.3 5.2 Current Immunosuppression: Cellcept 1000 mg BID, Prednisone 5 mg daily, Tacrolimus 1/.5 mg BID Goal Range for Immunosuppression: 6-9 Please advise on recommendations. Thank you, Delilah Guerrero R.N. ER ATTENDANT documented in this encounter Plan of Treatment Upcoming Encounters Date Type Department Care Team (Late st Contact Info) Description 09/11/2024 10:20 AM CDT Appointment Department of Laboratory Medicine in [place] [address] [place] [address] Jesus Alberto Wong M.D. [address] [place] [phone] 09/21/2024 10:00 AM CDT Nurse Only [facility] in [place], [place] [address] [place] [phone] Anderson Hewitt M.D. [address] [place] [phone] Audrey Guerrero R.N. [address] [place] [phone] 09/25/2024 6:20 AM CDT Lab Department of Laboratory Medicine and Pathology, [place], [place] [address] [place] [address] Anderson Hewitt M.D. [address] [place] [phone] 09/25/2024 6:30 AM CDT Lab Department of Laboratory Medicine and Pathology, [facility] in [place], [place] [address] [place] [address] Anderson Hewitt M.D. [address] [place] [phone] 09/25/2024 6:40 AM CDT Lab Department of Laboratory Medicine and Pathology, [facility] in [place], [place] [address] [place] [address] Anderson Hewitt M.D. [address] [place] [phone] 09/25/2024 7:00 AM CDT Appointment Department of Radiology, [facility] in [place], [place] [address] [place] [address] Anderson Hewitt M.D. [address] [place] [phone] 09/25/2024 8:00 AM CDT [facility] [place], [place] [address] [place] [address] Anderson Hewitt M.D. [address] [place] [phone] 09/25/2024 10:20 AM CDT Ancillary Procedure Department of Cardiovascular Medicine in [place], [place] [address] [place] [phone] Anderson Hewitt M.D. [address] [place] [phone] 09/25/2024 2:45 PM CDT Appointment Department of Cardiovascular Diseases in [place], [place] [address] [place] [phone] Anderson Hewitt M.D. [address] [place] [phone] 09/26/2024 8:50 AM CDT Appointment Department of Cardiovascular Diseases in [place], [place] [address] [place] [phone] Anderson Hewitt M.D. [address] [place] [phone] 09/26/2024 2:15 PM CDT Office Visit Eduard murguia [facility] for Transplantation and Clinical Regeneration in [place], [place] [address] [place] [phone] Anderson Hewitt M.D. [address] [place] [phone] 10/17/2024 10:40 AM CDT Comprehensive Visit Department of Dermatology in [place], [place] [address] [place] [phone] Zoya Chery M.D. [address] [place] [phone] 10/24/2024 10:30 AM CDT Appointment Department of Laboratory Medicine in [address] [phone] Anderson Hewitt M.D. [address] [place] [phone] documented as of this encounter Visit Diagnoses Not on filedocumented in this encounter Additional Health Concerns Infection Onset Date Last Indicated Resolved Time Protective Environment 10/12/2022 10/12/2022 Assessment Noted Time PHQ-9 Depression Total Score: 1 03/06/20 21 2:01 PM CDT documented as of this encounter Care Teams Rolled Oats Mill Operator Relationship Specialty Start Date End Date Elsewhere, Pcp PCP - General Family Medicine 02/20/21 documented as of this encounter
--- OUTSIDE RECORDS SUMMARY | 2024-08-30 17:39 | XMS_ITS | Encounter Summary ---
Author Organization [facility] Address [address] [place] [address] Care Team Providers Care Mill Set Up Name Role Phone Elsewhere, Pcp Primary Care Provider Unavailabl e Reason for Visit * Reason Onset Date Comments Med Refill 07/18/2024 Encounter Details Date Type Department Care Team (Late st Contact Info) Description 07/18/2024 [facility] in [place], [place] [address] [place] [phone] Audrey Guerrero R.N. [address] [place] [phone] Med Refill Social History Tobacco Use Types Packs/Day Years Used Date Smoking Tobacco: Former Cigarettes Q uit: 04/17/2018 Smokeless Tobacco: Never Alcohol Use Standard Drinks/Week Comments Not Currently 0 (1 standard drink = 0.6 oz pur e alcohol) [facility] Utilities Answer Date Recorded In the past 12 months has th e electric, gas, oil, or water [employer] threatened to shut off services in your [...] often do you attend chur ch or catholic services? Never 08/20/2022 Do you belong to any clubs o r organizations such as druze groups, unions, fraternal or athletic groups, or [...] Answer Date Recorded PHQ-2 Score 0 09/30/2021 [facility] [place] of Occupat ional Health - Occupational Stress [...] your living situation today? I have a [facility] place to live 09/28/2023 Education Answer Date Recorded What is the highest level of school you have completed or the highest degree you have received? Associate degree: occupational, technical, or vocational program 03/16/2020 Sex and Gender Information Value Date Recorded Sex Assigned at Male 03/23/2021 4:58 PM CDT Legal Sex Male 8:21 PM LINE AND FRAME POLER Gender Identity Male 06/01/2018 2:20 PM LINE AND FRAME POLER Sexual Orientation Straight 06/01/2018 2: 20 PM LINE AND FRAME POLER documented as of this encounter Plan of Treatment Upcoming Encounters Date Type Department Care Team (Late st Contact Info) Description 09/11/2024 10:20 AM CDT Appointment Department of Laboratory Medicine in [place] [address] [place] [address] Jesus Alberto Wong M.D. [address] [place] [address] 09/21/2024 10:00 AM CDT Nurse Only [facility] in [place], [place] [address] [place] [address] Anderson Hewitt M.D. [address] [place] [phone] Audrey Guerrero R.N. [address] [place] [phone] 09/25/2024 6:20 AM CDT Lab Department of Laboratory Medicine and Pathology, [place], [place] [address] [place] [address] Anderson Hewitt M.D. [address] [place] [phone] 09/25/2024 6:30 AM CDT Lab Department of Laboratory Medicine and Pathology, [facility] in [place], [place] [address] [place] [address] Anderson Hewitt M.D. [address] [place] [phone] 09/25/2024 6:40 AM CDT Lab Department of Laboratory Medicine and Pathology, [facility] in [place], [place] [address] [place] [address] Anderson Hewitt M.D. [address] [place] [phone] 09/25/2024 7:00 AM CDT Appointment Department of Radiology, [facility], in [place], [place] [address] [place] [address] Anderson Hewitt M.D. [address] [place] [phone] 09/25/2024 8:00 AM CDT Appointment Department of Radiology, [facility], in [place], [place] [address] [place] [address] Anderson Hewitt M.D. [address] [place] [phone] 09/25/2024 10:20 AM CDT Ancillary Procedure Department of Cardiovascular Medicine in [place], [place] [address] [place] [address] Anderson Hewitt M.D. [address] [place] [phone] 09/25/2024 2:45 PM CDT Appointment Department of Cardiovascular Diseases in [place], [place] [address] [place] [address] Anderson Hewitt M.D. [address] [place] [phone] 09/26/2024 8:50 AM CDT Appointment Department of Cardiovascular Diseases in [place], [place] [address] [place] [address] Anderson Hewitt M.D. [address] [place] [phone] 09/26/2024 2:15 PM CDT [facility] in [place], [place] [address] [place] [address] Anderson Hewitt M.D. [address] [place] [phone] 10/17/2024 10:40 AM CDT Comprehensive Visit Department of Dermatology in [place], [place] [address] [place] [address] Zoya Chery M.D. [address] [place] [address] 10/24/2024 10:30 AM CDT Appointment Department of Laboratory Medicine in [address] [phone] Anderson Hewitt M.D. 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
--- OUTSIDE RECORDS SUMMARY | 2024-08-30 17:40 | XMS_ITS | Encounter Summary ---
Author Organization [facility] Address [address] [place] [address] Care Team Providers Care Mechanical Development Engineer Name Role Phone Elsewhere, Pcp Primary Care Provider Unavailabl e Reason for Referral * Medication Prior Authorization - Authorized Specialty Diagnoses / Procedures Referred By Lucia t Referred To Contact Diagnoses Aftercare Transplant Heart (HCC) Jesus Alberto Wong M.D. [address] [place] [phone] Phone: tel: fax: Referral ID Status Reason Start Date Expiration Date V isits Requested Visits Authorized [id number] Authorized 07/04/2024 07/03/2039 1 1 N RESOURCES FILE CLERK Encounter Details Date Type Department Care Team (Latest Contact Info) Description 08/27/2024 Clinical Communication [facility] in [place], [place] [address] [place] [phone] Carmita Gallego I., Pharm.D., R.Ph., [facility] [address] [place] [phone] Social History Tobacco Use Types Packs/Day Years Used Date Smoking Tobacco: Former Cigarettes Q uit: 04/17/2018 Smokeless Tobacco: Never Alcohol Use Standard Drinks/Week Comments Not Currently 0 (1 standard drink = 0.6 oz pur e alcohol) [facility] Utilities Answer Date Recorded In the past 12 months has e electric, gas, oil, or water company [...] often do you attend chur ch or latter-day services? Never 08/20/2022 Do you belong to any clubs o r organizations such as gnosticism groups, unions, fraternal or athletic groups, or [...] Answer Date Recorded PHQ-2 Score 0 09/30/2021 [place] of Occupat ional Health - Occupational Stress [...] your living situation today? I have a [facility] place to live 09/28/2023 Education Answer Date Recorded What is the highest level of school you have completed or the highest degree you have received? Associate degree: occupational, technical, or vocational program 03/16/2020 Sex and Gender Information Value Date Recorded Sex Assigned at Male 03/23/2021 4:58 PM CDT Legal Sex Male 8:21 PM HUMAN RESOURCES FILE CLERK Gender Identity Male 06/01/2018 2:20 PM HUMAN RESOURCES FILE CLERK Sexual Orientation Straight 06/01/2018 2: 20 PM HUMAN RESOURCES FILE CLERK documented as of this encounter Miscellaneous Notes * Telephone Encounter - Carmita Gallego Pharm.D., R.Ph., [facility] - 08/27/2024 9:40 AM CST Transplant Pharmacist Consult: Itraconazole/Posaconazole Management Transplanted Organ and Date: 09/25/2020 (Heart), 09/25/2020 (Heart) Piper Installer: Audrey Guerrero Active Patient Thresholds Lab Low High Effective Since Comment Posaconazole Level 1250 3000 10/03/2023 Pulmonary Mucormycosis Mar 2021 Tacrolimus Level 6 9 07/27/2023 [place] 07/27/2023 renal function Recent Labs 08/24/24 1122 07/10/24 1039 POSACONAZOLE 2340 1070 Dose (mg) 300 mg daily 200 mg daily Adjustment 300 mg daily 07/17/24 Recent Labs 08/24/24 1122 07/25/24 1039 07/10/24 1039 TACROLIMUS 10.8 5.3 5.2 Dose (mg) 1/0.5 1/0.5 1/0.5 Adjustment Alanine Aminotransferase (ALT), S Date Value Ref Range Status 10/03/2023 24 7 - 55 U/L Final 06/08/2023 28 7 - 55 U/L Final 12/01/2022 36 7 - 55 U/L Final 08/25/2022 26 7 - 55 U/L Final 06/18/2022 31 7 - 55 U/L Final Concurrent Interacting Medications: Tacrolimus ASSESSMENT / PLAN Posaconazole within desired range, recommend continuing posaconazole DR 300 mg daily. Recommend rechecking with 09/25/24 schedule labs. Tacrolimus level juvenal, as expected with posaconazole dose increase. If aiming for 6-9, consider dose reduction to tacrolimus 0.5 mg BID and checking level within 2 weeks. Electronically signed by Carmita Gallego I., Saúl, R.Ph., [facility] at 08/27/2024 9:51 AM HUMAN RESOURCES FILE CLERK documented in this encounter Plan of Treatment Upcoming Encounters Date Type Department Care Team (Late st Contact Info) Description 09/11/2024 10:20 AM CDT Appointment Department of Laboratory Medicine in [address] [phone] Jesus Alberto Wong M.D. [address] [place] [address] 09/21/2024 10:00 AM CDT Nurse Only Eduard murguia [facility] for [facility] and Clinical Regeneration in [place], [place] [address] [place] [address] Anderson Hewitt M.D. [address] [place] [phone] Audrey Guerrero R.N. [address] [place] [phone] 09/25/2024 6:20 AM CDT Lab Department of Laboratory Medicine and Pathology, [place], [place] [address] [place] [address] Anderson Hewitt M.D. [address] [place] [phone] 09/25/2024 6:30 AM CDT Lab Department of Laboratory Medicine and Pathology, [place], [place] [address] [place] [address] Anderson Hewitt M.D. [address] [place] [phone] 09/25/2024 6:40 AM CDT Lab Department of Laboratory Medicine and Pathology, [place], [place] [address] [place] [address] nAderson Hewitt M.D. [address] [place] [phone] 09/25/2024 7:00 AM CDT Appointment Department of Radiology, [facility], in [place], [place] [address] [place] [address] Anderson Hewitt M.D. [address] [place] [address] 09/25/2024 8:00 AM CDT Appointment Department of Radiology, [facility], in [place], [place] [address] [place] [address] Anderson Hewitt M.D. [address] [place] [address] 09/25/2024 10:20 AM CDT Ancillary Procedure Department of Cardiovascular Medicine in [place], [place] [address] [place] [address] Anderson Hewitt M.D. [address] [place] [phone] 09/25/2024 2:45 PM CDT Appointment Department of Cardiovascular Diseases in [place], [place] [address] [place] [address] Anderson Hewitt M.D. [address] [place] [phone] 09/26/2024 8:50 AM CDT Appointment Department of Cardiovascular Diseases in [place], [place] [address] [place] [address] Anderson Hewitt M.D. [address] [place] [phone] 09/26/2024 2:15 PM CDT [facility] in [place], [place] [address] [place] [address] Anderson Hewitt M.D. [address] [place] [phone] 10/17/2024 10:40 AM CDT Comprehensive Visit Department of Dermatology in [place], [place] [address] [place] [phone] Zoya Chery M.D. [address] [place] [phone] 10/24/2024 10:30 AM CDT Appointment Department of Laboratory Medicine in [place], [place] [address] [place] [address] Anderson Hewitt M.D. [address] [place] [phone] Scheduled Orders Name Type Priority Associated Diagnoses Orde r Schedule Posaconazole (Noxafil), Level Lab Routine Aftercare Transplant Heart (HCC) Expected: 09/25/2024, Expires: 11/24/2025 documented as of this encounter Visit Diagnoses Diagnosis Aftercare Transplant Heart (HCC) documented in this encounter Additional Health Concerns Infection Onset Date Last Indicated Resolved Time Protective Environment 10/12/2022 10/12/2022 Assessment Noted Time PHQ-9 Depression Total Score: 1 03/06/20 21 2:01 PM CDT documented as of this encounter Care Teams Mechanical Development Engineer Relationship Specialty Start Date End Date Elsewhere, Pcp PCP - General Family Medicine 02/20/21 documented as of this encounter
--- OUTSIDE RECORDS SUMMARY | 2024-08-30 17:40 | XMS_ITS | Encounter Summary ---
Author Organization [facility] Address [address] [place] [address] Care Team Providers Care Cardiac Care Nurse Name Role Phone Elsewhere, Pcp Primary Care Provider Unavailabl e Reason for Visit * Reason Comments Med Refill Encounter Details Date Type Department Care Team (Late st Contact Info) Description 08/16/2024 Refill Eduard murguia [facility] Regeneration in [place], [place] [address] [place] [address] Dom Muller M.D. [address] [place] [phone] Med Refill Social History Tobacco Use Types Packs/Day Years Used Date Smoking Tobacco: Former Cigarettes Q uit: 04/17/2018 Smokeless Tobacco: Never Alcohol Use Standard Drinks/Week Comments Not Currently 0 (1 standard drink = 0.6 oz pur e alcohol) [facility] Utilities Answer Date Recorded In the past 12 months has th [employer], gas, oil, or water company threatened [...] often do you attend chur ch or sikh services? Never 08/20/2022 Do you belong to any clubs o r organizations such as christian groups, unions, fraternal or athletic groups, or [...] Answer Date Recorded PHQ-2 Score 0 09/30/2021 [facility] - Occupational [...] your living situation today? I have a [facility] place to live 09/28/2023 Education Answer Date Recorded What is the highest level of school you have completed or the highest degree you have received? Associate degree: occupational, technical, or vocational program 03/16/2020 Sex and Gender Information Value Date Recorded Sex Assigned at Male 03/23/2021 4:58 PM CDT Legal Sex Male 8:21 PM [employer] Gender Identity Male 06/01/2018 2:20 PM [employer] Sexual Orientation Straight 06/01/2018 2: 20 PM [employer] documented as of this encounter Plan of Treatment Upcoming Encounters Date Type Department Care Team (Late st Contact Info) Description 09/11/2024 10:20 AM CDT Appointment Department of Laboratory Medicine in [address] [phone] Jesus Alberto Wong M.D. [address] [place] [address] 09/21/2024 10:00 AM CDT Nurse Only Eduard Sanderson [place] [facility] in [place], [place] [address] [place] [address] Anderson Hewitt M.D. [address] [place] [phone] Audrey Guerrero R.N. [address] [place] [phone] 09/25/2024 6:20 AM CDT Lab Department of Laboratory Medicine and Pathology, [place], [place] [address] [place] [phone] Anderson Hewitt M.D. [address] [place] [phone] 09/25/2024 6:30 AM CDT Lab Department of Laboratory Medicine and Pathology, [facility] in [place], [place] [address] [place] [address] Anderson Hewitt M.D. [address] [place] [phone] 09/25/2024 6:40 AM CDT Lab Department of Laboratory Medicine and Pathology, [facility] in [place], [place] [address] [place] [address] Anderson Hewitt M.D. [address] [place] [phone] 09/25/2024 7:00 AM CDT Appointment Department of Radiology, [facility], in [place], [place] [address] [place] [phone] Anderson Hewitt M.D. [address] [place] [phone] 09/25/2024 8:00 AM CDT Appointment Department of Radiology, [facility], in [place], [place] [address] [place] [address] Anderson Hewitt M.D. [address] [place] [phone] 09/25/2024 10:20 AM CDT Ancillary Procedure Department of Cardiovascular Medicine in [place], [place] [address] [place] [address] Anderson Hewitt M.D. [address] [place] [phone] 09/25/2024 2:45 PM CDT Appointment Department of Cardiovascular Diseases in [place], [place] [address] [place] [address] Anderson Hewitt M.D. [address] [place] [phone] 09/26/2024 8:50 AM CDT Appointment Department of Cardiovascular Diseases in [place], [place] [address] [place] [address] Anderson Hewitt M.D. [address] [place] [phone] 09/26/2024 2:15 PM CDT [facility] [place], [place] [address] [place] [phone] Anderson Hewitt M.D. [address] [place] [phone] 10/17/2024 10:40 AM CDT Comprehensive Visit Department of Dermatology in [place], [place] [address] [place] [phone] Zoya Chery M.D. [address] [place] [phone] 10/24/2024 10:30 AM CDT Appointment Department of Laboratory Medicine in [address] [phone] Anderson Hewitt M.D. 200 [place] [address] documented as of this encounter Visit Diagnoses Diagnosis Transplant Heart (HCC) documented in this encounter Additional Health Concerns Infection Onset Date Last Indicated Resolved Time Protective Environment 10/12/2022 10/12/2022 Assessment Noted Time PHQ-9 Depression Total Score: 1 03/06/20 21 2:01 PM CDT documented as of this encounter Care Teams Cardiac Care Nurse Relationship Specialty Start Date End Date Elsewhere, Pcp PCP - General Family Medicine 02/20/21 documented as of this encounter
--- OUTSIDE RECORDS SUMMARY | 2024-08-30 17:40 | XMS_ITS | Encounter Summary ---
Author Organization [facility] Address [address] [place] [address] Care Team Providers Care Furnace Combination Analyst Name Role Phone Elsewhere, Pcp Primary Care Provider Unavailabl e Encounter Details Date Type Department Care Team (Late st Contact Info) Description 07/26/2024 Orders Only Eduard Sanderson [place] for Transplantation and Clinical Regeneration in [place], [place] [address] [place] [phone] Audrey Guerrero R.N. [address] [place] [phone] Transplant Heart (HCC) (Primary Dx) Social History Tobacco Use Types Packs/Day Years Used Date Smoking Tobacco: Former Cigarettes Q uit: 04/17/2018 Smokeless Tobacco: Never Alcohol Use Standard Drinks/Week Comments Not Currently 0 (1 standard drink = 0.6 oz pur e alcohol) [facility] Utilities Answer Date Recorded In the past [...] often do you attend chur ch or evangelical services? Never 08/20/2022 Do you belong to any clubs o r organizations such as judaism groups, unions, fraternal or athletic groups, or [...] Answer Date Recorded PHQ-2 Score 0 09/30/2021 [facility] Occupat ional Health - Occupational Stress [...] your living situation today? I have a [facility] place to live 09/28/2023 Education Answer Date Recorded What is the highest level of school you have completed or the highest degree you have received? Associate degree: occupational, technical, or vocational program 03/16/2020 Sex and Gender Information Value Date Recorded Sex Assigned at Male 03/23/2021 4:58 PM CDT Legal Sex Male 8:21 PM [employer] Gender Identity Male 06/01/2018 2:20 PM [employer] Sexual Orientation Straight 06/01/2018 2: 20 PM [employer] documented as of this encounter Plan of Treatment Upcoming Encounters Date Type Department Care Team (Late st Contact Info) Description 09/11/2024 10:20 AM CDT Appointment Department of Laboratory Medicine in [address] [phone] Jesus Alberto Wong M.D. [address] [place] [address] 09/21/2024 10:00 AM CDT Nurse Only Eduard murguia [facility] for Transplantation and Clinical Regeneration in [place], [place] [address] [place] [address] Anderson Hewitt M.D. [address] [place] [phone] Audrey Guerrero R.N. [address] [place] [phone] 09/25/2024 6:20 AM CDT Lab Department of Laboratory Medicine and Pathology, [place], [place] [address] [place] [address] Anderson Hewitt M.D. [address] [place] [phone] 09/25/2024 6:30 AM CDT Lab Department of Laboratory Medicine and Pathology, [facility] in [place], [place] [address] [place] [address] Anderson Hewitt M.D. [address] [place] [phone] 09/25/2024 6:40 AM CDT Lab Department of Laboratory Medicine and Pathology, [facility] in [place], [place] [address] [place] [address] Anderson Hewitt M.D. [address] [place] [phone] 09/25/2024 7:00 AM CDT Appointment Department of Radiology, [facility] in [place], [place] [address] [place] [address] Anderson Hewitt M.D. [address] [place] [phone] 09/25/2024 8:00 AM CDT Appointment Department of Radiology, [facility], in [place], [place] [address] [place] [address] Anderson Hewitt M.D. [address] [place] [phone] 09/25/2024 10:20 AM CDT Ancillary Procedure Department of Cardiovascular Medicine in [place], [place] [address] [place] [phone] Anderson Hewitt M.D. [address] [place] [phone] 09/25/2024 2:45 PM CDT Appointment Department of Cardiovascular Diseases in [place], [place] [address] [place] [address] Anderson Hewitt M.D. [address] [place] [phone] 09/26/2024 8:50 AM CDT Appointment Department of Cardiovascular Diseases in [place], [place] [address] [place] [phone] Anderson Hewitt M.D. [address] [place] [phone] 09/26/2024 2:15 PM CDT [facility] in [place], [place] [address] [place] [phone] Anderson Hewitt M.D. [address] [place] [phone] 10/17/2024 10:40 AM CDT Comprehensive Visit Department of Dermatology in [place], [place] [address] [place] [phone] Zoya Chery M.D. [address] [place] [phone] 10/24/2024 10:30 AM CDT Appointment Department of Laboratory Medicine in [place] [address] [place] [phone] Anderson Hewitt M.D. [address] [place] [address] documented as of this encounter Results * Tacrolimus, Trough (08/24/2024 11:22 AM [employer]) Tacrolimus, Trough 10.8 5.0-15.0 (Trough) ng/mL 08/25/2024 10:33 AM [employer] [facility] Comment: ----ADDITIONAL INFORMATION---- Target steady-state trough concentrations vary depending on the type of transplant, concomitant immunosuppression, clinical/institutional protocols, and time post-transplant. Results should be interpreted in conjunction with this clinical information and any physical signs/symptoms of rejection/toxicity. Testing performed by Liquid Chromatography-Tandem Mass Spectrometry (LC-MS/MS). This test was developed and its performance characteristics determined by [facility] in a manner consistent with CLIA requirements. This test has not been cleared or approved by the U.S. Food and Drug Administration. Blood (Blood, Venous) 08/24/2024 11:22 AM [employer] 08/25/2024 7:24 AM [employer] us Hakan Hawkins M.D. LAB BLOOD NON ADD-ON Fin al Result [facility] [address] [place] [address] [facility] [address] [place] [address] [place] [address] * (ABNORMAL) Magnesium (08/24/2024 11:22 AM [employer]) Magnesium, P 1.6(L) 1.7 - 2.3 mg/dL 08/24/2024 1:11 PM [employer]AT Blood (Blood, Venous) 08/24/2024 11:22 AM [employer] 08/24/2024 1:11 PM [employer] us Hakan Hawkins M.D. LAB BLOOD ADD-ON Final R esult [facility] [address] [place] [address], [place] OW[place] [facility] [place] [address] [place] [address] * (ABNORMAL) CBC with Differential, Blood (08/24/2024 11:22 AM [employer]) Hemoglobin 11.2(L) 13.2 - 16.6 g/dL 08/24/2024 11:27 AM [employer] FB60 Hematocrit 35.3(L) 38.3 - 48.6 % 08/24/2024 11:27 AM [employer] FB60 Erythrocytes 3.99(L) 4.35 - 5.65 x10(12)/L 08/24/2024 11:27 AM [employer] FB60 MCV 88.5 78.2 - 97.9 fL 08/24/2024 11:27 AM [employer] FB60 RBC Distrib Width 13.4 11.8 - 14.5 % 08/24/2024 11:27 AM [employer] FB60 Platelet Count 262 135 - 317 x10(9)/L 08/24/2024 11:27 AM [employer] FB60 Leukocytes 9.8(H) 3.4 - 9.6 x10(9)/L 08/24/2024 11:27 AM [employer] FB60 Neutrophils 7.80(H) 1.56 - 6.45 x10(9)/L 08/24/2024 11:27 AM [employer] FB60 Lymphocytes 0.91(L) 0.95 - 3.07 x10(9)/L 08/24/2024 11:27 AM [employer] FB60 Monocytes 0.71 0.26 - 0.81 x10(9)/L 08/24/2024 11:27 AM [employer] FB60 Eosinophils 0.37 0.03 - 0.48 x10(9)/L 08/24/2024 11:27 AM [employer] FB60 Basophils <0.04 0.01 - 0.08 x10(9)/L 08/24/2024 11:27 AM [employer] FB60 Blood (Blood, Venous) 08/24/2024 11:22 AM [employer] 08/24/2024 11:22 AM [employer] us Hakan Hawkins M.D. LAB BLOOD ADD-ON Final R esult [facility] [address] [place] [address], [facility] FB60 [facility] [place] [address] [place] [address] * (ABNORMAL) Basic Metabolic Panel (08/24/2024 11:22 AM [employer]) Potassium, P 3.9 3.6 - 5.2 mmol/L 08/24/2024 1:11 PM [employer] Sodium, P 140 135 - 145 mmol/L 08/24/2024 1:11 PM [employer] Chloride, P 102 98 - 107 mmol/L 08/24/2024 1:11 PM [employer] Bicarbonate, P 22 22 - 29 mmol/L 08/24/2024 1:11 PM [employer] Anion Gap, P 16(H) 7 - 15 08/24/2024 1:11 PM [employer] BUN (Blood Urea Nitrogen), P 35(H) 8 - 24 mg/dL 08/24/2024 1:11 PM [employer] Creatinine 2.58(H) 0.74 - 1.35 mg/dL 08/24/2024 1:11 PM [employer] Estimated GFR (eGFR) 27(L) >=60 mL/min/BSA 08/24/2024 1:11 PM [employer] Comment: Estimated GFR calculated using the 2020 CKD_EPI creatinine equation. Calcium, Total, P 9.1 8.8 - 10.2 mg/dL 08/24/2024 1:11 PM [employer] Glucose, P 111 70 - 140 mg/dL 08/24/2024 1:11 PM [employer] Blood (Blood, Venous) 08/24/2024 11:22 AM [employer] 08/24/2024 1:11 PM [employer] us Hakan Hawkins M.D. LAB BLOOD ADD-ON Final R esult [facility] [address] [place] [address], [place] OW[place] [facility] [place] [address] [place] [address] documented in this encounter Visit Diagnoses Diagnosis Transplant Heart (HCC)- Primary documented in this encounter Additional Health Concerns Infection Onset Date Last Indicated Resolved Time Protective Environment 10/12/2022 10/12/2022 Assessment Noted Time PHQ-9 Depression Total Score: 1 03/06/20 21 2:01 PM CDT documented as of this encounter Care Teams Furnace Combination Analyst Relationship Specialty Start Date End Date Elsewhere, Pcp PCP - General Family Medicine 02/20/21 documented as of this encounter
--- OUTSIDE RECORDS SUMMARY | 2024-08-30 17:41 | XMS_ITS | Clinical Summary ---
Author Organization [email or web address] [facility] Address [facility] [place] [address] Care Team Providers Care Pig Iron Loader Name Role Phone Dany Pagan MD Unavailable Antonella Heath MBBS Unavailable Gabriella Dunbar RN Unavailable Silvano Gibbons MD Unavailable [phone] Patricia Díaz SENIOR VISUAL DESIGNER Unavailable Kaushal Salomon MD Primary Care Provider [phone] Allergies Active Allergy Reactions Criticality Noted Date Comments Lisinopril Other - Describe In Comment Field Medium 06/20/2019 Leg weakness Medications amoxicillin (AMOXIL) 500 mg capsule For dental procedure as directed by dentist Active acetaminophen (TYLENOL EXTRA STRGTH) 500 mg tablet Take 500 mg by mouth. Active aspirin (ECOTRIN) 81 mg enteric coated tablet Take 81 mg by mouth. Active cholecalciferol (VITAMIN D3) 1,000 unit tablet Take 25 mcg by mouth. Active cloNIDine 0.2 mg/24 hr ([id number] ) 0.2 mg/24 hr patch APPLY 1 PATCH ONE TIME PER WEEK 2 Active famotidine (PEPCID) 20 mg tablet Take 20 mg by mouth. 1 Active mycophenolate (CELLCEPT) 250 mg capsule TAKE 2 CAPSULES BY MOUTH 2 TIMES A DAY. DO NOT BREAK, CUT, OR OPEN CAPSULES. 2 Active posaconazole (NOXAFIL) 100 mg delayed release tablet Take 300 mg by mouth. 1 Active predniSONE (DELTASONE) 5 mg tablet TAKE 2 TABLETS BY MOUTH DAILY. TAKE WITH TWO 1 MG TABS. DOSE IS NOW 12 MG DAILY 2 Active sirolimus (RAPAMUNE) 0.5 mg tablet TAKE 2 TABLETS BY MOUTH DAILY WITH BREAKFAST. 2 Active levothyroxine (SYNTHROID) 50 mcg tablet Take 50 mcg by mouth before breakfast. 2 Active tacrolimus (PROGRAF) 0.5 mg capsule Take 1 Capsule by mouth two times daily. 3 Active losartan (COZAAR) 50 mg tablet Take 50 mg by mouth once daily. 3 Active ezetimibe (ZETIA) 10 mg tablet Take 10 mg by mouth once daily. 3 Active Active Problems Problem Noted Date Diagnosed Date Acute idiopathic gout of left foot 03/22/2023 Overview (03/22/2023): Mar 2023: [facility] Emergency room visit for gout. 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 Umbilical hernia without obstruction and without gangrene 08/04/2022 Drug-induced immunodeficiency 08/04/2022 Stage 4 chronic kidney disease 03/22/2022 Pulmonary mucormycosis 03/22/2022 Hypothyroidism (acquired) 02/26/2020 Overview (02/26/2020): Feb 2020: Probably related to amiodarone. Started on Levothyroxine 25mcg. Food in esophagus causing dysphagia 02/23/2020 Hypothyroidism 02/23/2020 Elevated troponin 02/23/2020 Screening for colon cancer 02/12/2020 Overview (02/12/2020): June 2018: Colonoscopy normal done outside [facility], due 2027. VT (ventricular tachycardia) 01/18/2020 Overview (01/23/2020): January 2020: cardioverter-defibrillator interrogation revealed multiple defibrillations for ventricular tachycardia with associated exacerbation of CHF. Was started on amiodarone, Losartan added, and diuresed. Chronic combined systolic and diastolic heart fa ilure 06/20/2019 Alcohol abuse, daily use 04/13/2017 Overview (04/13/2017): 5 beer daily. Primary familial hypertrophic cardiomyopathy 10/2016 Overview (08/04/2022): September 2020: [facility], orthotopic heart transplantation by Dr. Javid Desouza on September 25, 2020. ~ Heart transplant at [facility] on September 25, 2020, secondary to familial hypertrophic cardiomyopathy PVC (premature ventricular contraction) 01/20/20 16 Tobacco abuse 12/09/2011 Overview (03/29/2017): Quit many years ago, still has a few cigars. LEODAN (obstructive sleep apnea) 12/09/2011 Overview (03/27/2015): Treatment is to sleep on side. Can't use CPAP Resolved Problems Problem Noted Date Diagnosed Date Resolved Date Atrial tachycardia, paroxysmal 03/30/2017 08/04/2022 Atypical atrial flutter 02/24/2017 02/07/2022 Anticoagulation goal of INR 2 to 3 05/20/2016 10/02/2020 AICD lead malfunction 02/05/20162016 Atrial fibrillation with RVR 01/20/2016 08/04/2022 Overview (12/22/2016): December 2016: back in aflutter per Cardiology follow up, on pradaxa, ablation suggested. Automatic implantable cardia c defibrillator in situ 02/16/2012 03/22/2022 Hypertrophic cardiomyopathy EF 30% echo 10/13, NYHA Class II 12/09/2011 11/04/2016 FEVER 09/03/2004 07/11/2010 SORE THROAT 09/03/2004 07/11/2010 Immunizations Name Administration Dates Next Due Hepatitis B (Adult) 12/06/2018,07/10/2018,2017 Influenza Virus, Unspecified 05/26/2022 Influenza, IIV4 05/08/2021,05/20/2020,06/09/2018 Pneumococcal Poly,23-Valent (Pneumovax) 08/04/19 19 Pneumococcal conj 13-Valent (Prevnar 13) 018 Tdap 07/10/2018 Zoster (Shingrix-RZV, recombinant) 08/02/2022, Family History Medical History Relation Name Comments Heart Disease Brother IHS Heart Disease Mother defbrillator, pacemaker Heart Disease Sister Relation Name Status Comments Brother Mother Sister Social History Tobacco Use Types Packs/Day Years Used Date Smoking Tobacco: Former Cigarettes 1 10 1 - 04/09/2018 Cigars Smokeless Tobacco: Never Tobacco Cessation:Counseling Given: Not Answered Alcohol Use Standard Drinks/Week Comments Not Currently 3 (1 standard drink = 0.6 oz pur e alcohol) Ocassionally PHQ-2 Answer Date Recorded PHQ-2 TOTAL SCORE 0 08/02/2022 Social Connections Answer Date Recorded Frequency of Communication with Friends and Fami ly Not on file 03/31/2023 Financial Resource Strain Answer Date R ecorded Difficulty of Paying Living Expenses 3 03/22/2022 Difficulty of Paying Living Expenses Not on file 03/22/2022 Food Insecurity Answer Date Recorded Worried About Running Out of Food in the Last Ye ar 1 03/22/2022 Transportation Needs Answer Date Record ed Lack of Transportation (Medical) 1 03/22/2022 Housing Stability Answer Date Recorded Unable to Pay for Housing in the Last Year 1 03/22/2022 Sex and Gender Information Value Date Recorded Sex Assigned at Not on file Legal Sex Male 5:48 AM RADIO REPAIRER Gender Identity Not on file Sexual Orientation Not on file Obstetrics History Last Filed Vital Signs Vital Sign Reading Time Taken Comments Blood Pressure 122/73 09/13/2022 1:10 PM CDT Pulse 88 09/13/2022 1:10 PM CDT Temperature 36.8 C (98.3 F) 07/15/2021 2:24 PM RADIO REPAIRER Respiratory Rate 20 07/15/2021 2:24 PM RADIO REPAIRER Oxygen Saturation 99% 09/13/2022 1:10 PM CDT Inhaled Oxygen Concentration - - Weight 85.2 kg (187 lb 14.4 oz) 09/13/2022 1:10 PM CDT Height 180.3 cm (5' 11) 08/02/2022 8:45 AM RADIO REPAIRER Body Mass Index 26.21 08/02/2022 8:45 AM RADIO REPAIRER Plan of Treatment Health Maintenance Due Date Last Done Comments HIV for age 15-65 1974 Hepatitis C screening for ag e 18-79 1977 RSV vaccine for adults or (1 - Risk 60-74 years 1-dose series) 2019 BMI (ht and wt on same day) for age 18+ 08/02/2023 08/02/2022, 03/22/2022, 04/30/2020, Additional history exists Depression screening for age 12+ 08/02/2023 08/02/2022, 01/30/2020, 01/29/2020, Additional history exists Pneumococcal series for age 50+ (3 of 3 - PPSV23, PCV20 or PCV21) 08/04/2023 08/04/2018, 06/09/2018 COVID-19 vaccine series ( season) 2024 06/20/2023, 08/18/2022, 12/18/2021, Additional history exists Influenza for age 65+ 03/04/2024 05/26/2022 , 05/08/2021, 05/20/2020, Additional history exists Lipids for age 45-75 06/20/2024 06/20/2019, 06/02/20 16 Colonoscopy through age 75 06/13/2028 06/13/2018 Tetanus booster 07/10/2028 07/10/2018 Tdap Completed 07/10/2018 Zoster (shingles) series for age 50+ Completed 08/02/2022, 05/20/2020 Medical Devices Implanted Type Area Facility Attendant Device Identifier Shelf Expiration Date Model / Serial / Lot Icd Only-02/10/2012 Implanted:03/2012 (Quantity not on file) ICD Only [employer] [id number] / / Procedures Procedure Name Priority Date/Time Associated Diagnosis Comments LIPID PANEL W REFLEX MEASURED LDL Routine 06/20/2019 8:13 AM RADIO REPAIRER Chronic systolic CHF (congestive heart failure), NYHA class 2 (HC) SCAN-COLONOSCOPY 06/13/2018 12:0 0 AM RADIO REPAIRER from Last 3 Months or Most Recently Relevant to Health Maintenance Results * (ABNORMAL) LIPID PANEL W REFLEX MEASURED LDL (06/20/2019 8:13 AM RADIO REPAIRER) CHOLESTEROL,TOTAL 149 100 - 199 mg/dL 06/20/2019 12:56 PM [facility] TRIGLYCERIDES 99 <150 mg/dL 06/20/2019 12:56 PM [facility] HDL CHOLESTEROL 38(L) >40 mg/dL 9 12:56 PM [facility] NON-HDL CHOLESTEROL 111 <145 mg/dl 06/20/2019 12:56 PM [facility] CHOL/HDL RATIO 3.92 <4.50 06/20/2019 12:56 PM [facility] LDL CHOLESTEROL 91 <=130 mg/dL 06/20/2019 12:56 PM [facility] PROVIDER ORDERED STATUS RANDOM 06/20/2019 12:56 PM [facility] Blood BLOOD SPECIMEN / Unknown Venipuncture / Unknown 06/20/2019 8:13 AM RADIO REPAIRER 06/20/2019 8:13 AM RADIO REPAIRER us Shirley Fung NP CHEMISTRY Final Re sult [facility] [place] ZIP [id number] [place] [id number] * SCAN-COLONOSCOPY (06/13/2018 12:00 AM RADIO REPAIRER) us Scanner OTHER Final Result from Last 3 Months or Most Recently Relevant to Health Maintenance Insurance [place]ON[place]IVA [id number] [facility] MEDICARE [place] ONLY Advance Directives * Full Code (Latest Code Status on File) Date Activated Date Inactivated Comments 02/23/2020 2:14 PM 02/24/2020 7:37 PM Question Answer Comments Code Status Discussion: Discussed * Full Code Date Activated Date Inactivated Comments 01/19/2020 3:03 PM 01/22/2020 2:17 PM * Full Code Date Activated Date Inactivated Comments 07/01/2017 11:02 AM 07/02/2017 12:37 PM * Full Code Date Activated Date Inactivated Comments 06/09/2017 11:56 AM 06/09/2017 7:04 PM * Full Code Date Activated Date Inactivated Comments 02/23/2017 6:58 AM 02/24/2017 12:48 PM Care Teams Pig Iron Loader Relationship Specialty Start Date End Date Kaushal Salomon MD [address] [facility] [address] [place] [address] PCP - General Family Practice 02/02/22 Dany Pagan MD [address] [place] [id number] Consulting Physician Cardiovascular Disease 06/20/12 Antonella Heath MBBS [address] [place] [id number] Cardiology - EP Cardiovascular Disease 01/17/17 Gabriella Dunbar RN [address] [facility] [address] [place] [address] Cardiology - EP Registered Nurse 01/17/17 Silvano Gibbons MD [address], [place] [address] Family Practice Family Practice 03/29/17 Patricia Díaz NP [address] [facility] [address] [place] [address] Cardiology - EP Nurse Practitioner 05/23/19
--- OUTSIDE RECORDS SUMMARY | 2024-08-30 17:41 | XMS_ITS | Encounter Summary ---
Author Organization [facility] Address [address] [place] [address] Care Team Providers Care Seat Maker Name Role Phone Elsewhere, Pcp Primary Care Provider Unavailabl e Encounter Details Date Type Department Care Team (Latest Contact Info) Description 08/24/2024 11:14 AM SUSTAINABILITY EXECUTIVE DIRECTOR - 08/24/2024 11:59 PM [facility] Hospital Encounter Department of Laboratory Medicine in [place] [address] [place] [phone] Jesus Alberto Wong M.D. [address] [place] [address] Transplant Heart (HCC) Discharge Disposition: Home or Self Care Social History Tobacco Use Types Packs/Day Years Used Date Smoking Tobacco: Former Cigarettes Q uit: 04/17/2018 Smokeless Tobacco: Never Alcohol Use Standard Drinks/Week Comments Not Currently 0 (1 standard drink = 0.6 oz pur e alcohol) [facility] Utilities Answer Date Recorded In the past 12 months has th e electric, gas, oil, or water [employer] threatened to shut off services in your [...] 08/20/2022 How often do you attend chur or jew services? Never 08/20/2022 Do you belong to any clubs o r organizations such as pentecostalism groups, unions, fraternal or athletic groups, or [...] Answer Date Recorded PHQ-2 Score 0 09/30/2021 [facility] - [...] your living situation today? [facility] 09/28/2023 Education Answer Date Recorded What is the highest level of school you have completed or the highest degree you have received? Associate degree: occupational, technical, or vocational program 03/16/2020 Sex and Gender Information Value Date Recorded Sex Assigned at Male 03/23/2021 4:58 PM CDT Legal Sex Male 8:21 PM SUSTAINABILITY EXECUTIVE DIRECTOR Gender Identity Male 06/01/2018 2:20 PM SUSTAINABILITY EXECUTIVE DIRECTOR Sexual Orientation Straight 06/01/2018 2: 20 PM SUSTAINABILITY EXECUTIVE DIRECTOR documented as of this encounter Medications at Time of Discharge acetaminophen (TYLENOL) 500 mg tablet Take 500 mg by mouth 2 (two) times a day as needed for pain (Takes 500-1000 mg twice daily as needed for headaches). alendronate (FOSAMAX) 70 mg tablet 1 tablet once a week on an empty stomach with plenty of water, do not eat or drink anything else for half an hour, remain upright for 1 hour 12 tablet 3 09/15/2022 allopurinoL (ZYLOPRIM) 100 mg tablet Take 2 tablets (200 mg total) by mouth daily. 180 tablet 3 11/03/[address] tablet Take 81 mg by mouth daily. cholecalciferol, vitamin D3, 25 mcg (1,000 Unit) tablet Take 25 mcg by mouth daily. cloNIDine (CATAPRES-TTS) 0.2 mg/24 hr patchIndications:T ransplant Heart ([facility]) APPLY 1 PATCH ONE TIME PER WEEK 12 patch 3 11/21/2023 ezetimibe (Zetia) 10 mg tabletIndications: Transplant Heart ([facility]) TAKE 1 TABLET BY MOUTH EVERY DAY 90 tablet 3 08/16/2024 famotidine (PEPCID) 20 mg tablet Take 1 tablet (20 mg total) by mouth 2 (two) times a day. 60 tablet 11 01/15/2021 fish oil 300-1,[address] capsule Take 1,000 mg by mouth 2 (two) times a day with meals. levothyroxine (SYNTHROID, LEVOTHROID) 88 mcg tabletIndications: Hypothyroidism Take 1 tablet (88 mcg total) by mouth every morning before breakfast. 90 tablet 3 07/07/2023 losartan (Cozaar) 50 mg tabletIndications: Transplant Heart ([facility]) TAKE 1 TABLET BY MOUTH EVERY DAY 90 tablet 3 08/16/2024 mycophenolate (CellCept) 250 mg capsuleIndications :Transplant Heart (HCC) Take 4 capsules (1,000 mg total) by mouth 2 (two) times a day. 240 capsule 11 07/05/2024 posaconazole (NoxafiL) [address] tabletIndications: Transplant Heart ([facility]),Pulmonary Mucormycosis (HCC) Take 3 tablets (300 mg total) by mouth daily. 270 tablet 3 07/18/2024 predniSONE (Deltasone) 5 mg tablet Take 1 tablet (5 mg total) by mouth daily. Take one tablet daily 90 tablet 3 05/10/2024 sulfamethoxazole-t rimethoprim (Bactrim) 400-80 mg per tabletIndications: Transplant Heart ([facility]) TAKE 1 TABLET BY MOUTH 3 (THREE) TIMES A WEEK. TAKE ON TUESDAY'S, TUESDAY'S AND TUESDAY'S ONLY. 36 tablet 3 05/23/2024 11/20/202 5 tacrolimus (PROGRAF) 0.5 mg capsuleIndications :Aftercare Transplant Heart (HCC) Take 2 capsules (1 mg total) by mouth every morning AND 1 capsule (0.5 mg total) every evening. 270 capsule 3 09/08/2023 5 documented as of this encounter Plan of Treatment Upcoming Encounters Date Type Department Care Team (Late st Contact Info) Description 09/11/2024 10:20 AM CDT Appointment Department of Laboratory Medicine in [address] [phone] Jesus Alberto Wong M.D. [address] [place] [phone] 09/21/2024 10:00 AM CDT Nurse Only [facility] in [place], [place] [address] [place] [phone] Anderson Hewitt M.D. [address] [place] [phone] Audrey Guerrero R.N. [address] [place] [phone] 09/25/2024 6:20 AM CDT Lab Department of Laboratory Medicine and Pathology, [place], [place] [address] [place] [phone] Anderson Hewitt M.D. [address] [place] [phone] 09/25/2024 6:30 AM CDT Lab Department of Laboratory Medicine and Pathology, [facility] in [place], [place] [address] [place] [phone] Anderson Hewitt M.D. [address] [place] [phone] 09/25/2024 6:40 AM CDT Lab Department of Laboratory Medicine and Pathology, [facility], in [place], [place] [address] [place] [address] Anderson Hewitt M.D. [address] [place] [phone] 09/25/2024 7:00 AM CDT Appointment Department of Radiology, [facility], in [place], [place] [address] [place] [address] Anderson Hewitt M.D. [address] [place] [phone] 09/25/2024 8:00 AM CDT Appointment Department of Radiology, [facility] in [place], [place] [address] [place] [address] Anderson Hewitt M.D. [address] [place] [phone] 09/25/2024 10:20 AM CDT Ancillary Procedure Department of Cardiovascular Medicine in [place], [place] [address] [place] [phone] Anderson Hewitt M.D. [address] [place] [phone] 09/25/2024 2:45 PM CDT Appointment Department of Cardiovascular Diseases in [place], [place] [address] [place] [phone] Anderson Hewitt M.D. [address] [place] [phone] 09/26/2024 8:50 AM CDT Appointment Department of Cardiovascular Diseases in [place], [place] [address] [place] [phone] Anderson Hewitt M.D. [address] [place] [phone] 09/26/2024 2:15 PM CDT Office Visit Eduard murguia [facility] in [place], [place] [address] [place] [address] Anderson Hewitt M.D. [address] [place] [phone] 10/17/2024 10:40 AM CDT Comprehensive Visit Department of Dermatology in [place], [place] [address] [place] [phone] Zoya Chery M.D. [address] [place] [phone] 10/24/2024 10:30 AM CDT Appointment Department of Laboratory Medicine in [place], [place] [address] [place] [address] Anderson Hewitt M.D. [address] [place] [address] documented as of this encounter Procedures Procedure Name Priority Date/Time Associated Diagnosis Comments POSACONAZOLE, S Routine 08/24/2024 11:22 AM SUSTAINABILITY EXECUTIVE DIRECTOR Transplant Heart (HCC) TACROLIMUS LEVEL, B Routine 08/24/2024 1 1:22 AM SUSTAINABILITY EXECUTIVE DIRECTOR Transplant Heart (HCC) CBC WITH DIFFERENTIAL, B Routine 08/24/2024 11:22 AM SUSTAINABILITY EXECUTIVE DIRECTOR Transplant Heart (HCC) MAGNESIUM, S Routine 08/24/2024 11:22 AM SUSTAINABILITY EXECUTIVE DIRECTOR Transplant Heart (HCC) BASIC METABOLIC PANEL, S/P Routine 08/24/2024 11:22 AM SUSTAINABILITY EXECUTIVE DIRECTOR Transplant Heart (HCC) documented in this encounter Results * Tacrolimus, Trough (08/24/2024 11:22 AM SUSTAINABILITY EXECUTIVE DIRECTOR) Tacrolimus, Trough 10.8 5.0-15.0 (Trough) ng/mL 08/25/2024 10:33 AM SUSTAINABILITY EXECUTIVE DIRECTOR [facility] Comment: ----ADDITIONAL INFORMATION---- Target steady-state trough concentrations vary depending on the type of transplant, concomitant immunosuppression, clinical/institutional protocols, and time post-transplant. Results should be interpreted in conjunction with this clinical information and any physical signs/symptoms of rejection/toxicity. Testing performed by Liquid Chromatography-Tandem Mass Spectrometry (LC-MS/MS). This test was developed and its performance characteristics determined by [facility] in a manner consistent with CLIA requirements. This test has not been cleared or approved by the U.S. Food and Drug Administration. Blood (Blood, Venous) 08/24/2024 11:22 AM SUSTAINABILITY EXECUTIVE DIRECTOR 08/25/2024 7:24 AM SUSTAINABILITY EXECUTIVE DIRECTOR Hakan Hawkins M.D. LAB BLOOD NON ADD-ON Fin al Result Performing Organization Address City/[facility]/ZIP Co de Phone Number [facility] [address] [place] [address] [facility] [address] [place] [address] [place] [address] * (ABNORMAL) Magnesium (08/24/2024 11:22 AM SUSTAINABILITY EXECUTIVE DIRECTOR) Pathologist [facility] Magnesium, P 1.6(L) 1.7 - 2.3 mg/dL 08/24/2024 1:11 PM SUSTAINABILITY EXECUTIVE DIRECTOR [facility] Blood (Blood, Venous) 08/24/2024 11:22 AM SUSTAINABILITY EXECUTIVE DIRECTOR 08/24/2024 1:11 PM SUSTAINABILITY EXECUTIVE DIRECTOR Hakan Hawkins M.D. LAB BLOOD ADD-ON Final R esult [facility] [address] [place] [address], [place] [facility] [facility] in [place] [address] [place] [address] * (ABNORMAL) CBC with Differential, Blood (08/24/2024 11:22 AM SUSTAINABILITY EXECUTIVE DIRECTOR) Hemoglobin 11.2(L) 13.2 - 16.6 g/dL 08/24/2024 11:27 AM SUSTAINABILITY EXECUTIVE DIRECTOR FB60 Hematocrit 35.3(L) 38.3 - 48.6 % 08/24/2024 11:27 AM SUSTAINABILITY EXECUTIVE DIRECTOR FB60 Erythrocytes 3.99(L) 4.35 - 5.65 x10(12)/L 08/24/2024 11:27 AM SUSTAINABILITY EXECUTIVE DIRECTOR FB60 MCV 88.5 78.2 - 97.9 fL 08/24/2024 11:27 AM SUSTAINABILITY EXECUTIVE DIRECTOR FB60 RBC Distrib Width 13.4 11.8 - 14.5 % 08/24/2024 11:27 AM SUSTAINABILITY EXECUTIVE DIRECTOR FB60 Platelet Count 262 135 - 317 x10(9)/L 08/24/2024 11:27 AM SUSTAINABILITY EXECUTIVE DIRECTOR FB60 Leukocytes 9.8(H) 3.4 - 9.6 x10(9)/L 08/24/2024 11:27 AM SUSTAINABILITY EXECUTIVE DIRECTOR FB60 Neutrophils 7.80(H) 1.56 - 6.45 x10(9)/L 08/24/2024 11:27 AM SUSTAINABILITY EXECUTIVE DIRECTOR FB60 Lymphocytes 0.91(L) 0.95 - 3.07 x10(9)/L 08/24/2024 11:27 AM SUSTAINABILITY EXECUTIVE DIRECTOR FB60 Monocytes 0.71 0.26 - 0.81 x10(9)/L 08/24/2024 11:27 AM SUSTAINABILITY EXECUTIVE DIRECTOR FB60 Eosinophils 0.37 0.03 - 0.48 x10(9)/L 08/24/2024 11:27 AM SUSTAINABILITY EXECUTIVE DIRECTOR FB60 Basophils <0.04 0.01 - 0.08 x10(9)/L 08/24/2024 11:27 AM SUSTAINABILITY EXECUTIVE DIRECTOR FB60 Blood (Blood, Venous) 08/24/2024 11:22 AM SUSTAINABILITY EXECUTIVE DIRECTOR 08/24/2024 11:22 AM SUSTAINABILITY EXECUTIVE DIRECTOR us Hakan Hawkins M.D. LAB BLOOD ADD-ON Final R esult [facility] [address] [place] [address], [facility] FB60 [facility] in [place] [address] [place] [address] * (ABNORMAL) Basic Metabolic Panel (08/24/2024 11:22 AM SUSTAINABILITY EXECUTIVE DIRECTOR) Potassium, P 3.9 3.6 - 5.2 mmol/L 08/24/2024 1:11 PM SUSTAINABILITY EXECUTIVE DIRECTOR [facility] Sodium, P 140 135 - 145 mmol/L 08/24/2024 1:11 PM SUSTAINABILITY EXECUTIVE DIRECTOR [employer] Chloride, P 102 98 - 107 mmol/L 08/24/2024 1:11 PM SUSTAINABILITY EXECUTIVE DIRECTOR [employer] Bicarbonate, P 22 22 - 29 mmol/L 08/24/2024 1:11 PM SUSTAINABILITY EXECUTIVE DIRECTOR [employer] Anion Gap, P 16(H) 7 - 15 08/24/2024 1:11 PM SUSTAINABILITY EXECUTIVE DIRECTOR [facility] BUN (Blood Urea Nitrogen), P 35(H) 8 - 24 mg/dL 08/24/2024 1:11 PM SUSTAINABILITY EXECUTIVE DIRECTOR [employer] Creatinine 2.58(H) 0.74 - 1.35 mg/dL 08/24/2024 1:11 PM SUSTAINABILITY EXECUTIVE DIRECTOR [facility] Estimated GFR (eGFR) 27(L) >=60 mL/min/BSA 08/24/2024 1:11 PM SUSTAINABILITY EXECUTIVE DIRECTOR [facility] Comment: Estimated GFR calculated using the 2020 CKD_EPI creatinine equation. Calcium, Total, P 9.1 8.8 - 10.2 mg/dL 08/24/2024 1:11 PM SUSTAINABILITY EXECUTIVE DIRECTOR [employer] Glucose, P 111 70 - 140 mg/dL 08/24/2024 1:11 PM SUSTAINABILITY EXECUTIVE DIRECTOR [employer] Blood (Blood, Venous) 08/24/2024 11:22 AM SUSTAINABILITY EXECUTIVE DIRECTOR 08/24/2024 1:11 PM SUSTAINABILITY EXECUTIVE DIRECTOR us Hakan Hawkins M.D. LAB BLOOD ADD-ON Final R esult [facility] [address] [place] [address], [place] [facility] in [place] [address] [place] [address] * Posaconazole (Noxafil), Level (08/24/2024 11:22 AM SUSTAINABILITY EXECUTIVE DIRECTOR) Posaconazole, S 2340 >700 ng/mL 08/26/2024 2:00 PM SUSTAINABILITY EXECUTIVE DIRECTOR [facility] Comment: ----ADDITIONAL INFORMATION---- This test was developed and its performance characteristics determined by [facility] in a manner consistent with CLIA requirements. This test has not been cleared or approved by the U.S. Food and Drug Administration. Blood (Blood, Venous) 08/24/2024 11:22 AM SUSTAINABILITY EXECUTIVE DIRECTOR 08/25/2024 7:33 AM SUSTAINABILITY EXECUTIVE DIRECTOR us Jesus Alberto Wong M.D. LAB BLOOD NON ADD-ON Final Result [facility] [address] [place] [address] [facility] [address] [place] [address] [place] [phone] documented in this encounter Visit Diagnoses Diagnosis Transplant Heart (HCC) documented in this encounter Additional Health Concerns Infection Onset Date Last Indicated Resolved Time Protective Environment 10/12/2022 10/12/2022 Assessment Noted Time PHQ-9 Depression Total Score: 1 03/06/20 21 2:01 PM CDT documented as of this encounter Care Teams Seat Maker Relationship Specialty Start Date End Date Elsewhere, Pcp PCP - General Family Medicine 02/20/21 documented as of this encounter
--- OUTSIDE RECORDS SUMMARY | 2024-08-30 17:41 | XMS_ITS | Clinical Summary ---
Author Organization [facility] Address [address] [place] [address] Care Team Providers Care Environment Friendly Landscape Designer Name Role Phone Elsewhere, Pcp Primary Care Provider Unavailabl e Source Comments Patient records contain information from all sites at [facility]. For routine questions regarding patient records, call [phone] during business hours, M-F 8:00 AM - 5:00 PM Central Time. Record requests for emergency care only can be directed to [phone] at any time.[facility] Allergies Active Allergy Reactions Criticality Noted Date Comments Lisinopril Other (see comments) Medium 06/20/2019 Leg weakness Sirolimus Other (see comments) 09/26/2023 SORES, LUNGS SHOWED SORES ON XRAY, THRUSH Medications * This document contains information received from the source organization and may not represent a complete record from that organization. cholecalciferol , vitamin D3, 25 mcg (1,000 Unit) tablet Take 25 mcg by mouth daily. Active famotidine (PEPCID) 20 mg tablet Take 1 tablet (20 mg total) by mouth 2 (two) times a day. 60 tablet 11 01/16/20 21 Active acetaminophen (TYLENOL) 500 mg tablet Take 500 mg by mouth 2 (two) times a day as needed for pain (Takes 500-1000 mg twice daily as needed for headaches). Active aspirin [address] tablet Take 81 mg by mouth daily. Active alendronate (FOSAMAX) 70 mg tablet 1 tablet once a week on an empty stomach with plenty of water, do not eat or drink anything else for half an hour, remain upright for 1 hour 12 tablet 3 09/16/19 23 Active Additional Information Patient not taking.Reported on 09/23/2023 levothyroxine (SYNTHROID, LEVOTHROID) 88 mcg tabletIndicatio ns:Hypothyroidi sm Take 1 tablet (88 mcg total) by mouth every morning before breakfast. 90 tablet 3 07/07/19 24 Active fish oil 300-1,[address] capsule Take 1,000 mg by mouth 2 (two) times a day with meals. Active allopurinoL (ZYLOPRIM) 100 mg tablet Take 2 tablets (200 mg total) by mouth daily. 180 tablet 3 11/03/19 24 Active cloNIDine (CATAPRES-TTS) 0.2 mg/24 hr patchIndication s:Transplant Heart (HCC) APPLY 1 PATCH ONE TIME PER WEEK 12 patch 3 11/21/19 24 Active predniSONE (Deltasone) 5 mg tablet Take 1 tablet (5 mg total) by mouth daily. Take one tablet daily 90 tablet 3 05/10/20 24 Active sulfamethoxazol e-trimethoprim (Bactrim) 400-80 mg per tabletIndicatio ns:Transplant Heart (HCC) TAKE 1 TABLET BY MOUTH 3 (THREE) TIMES A WEEK. TAKE ON TUESDAY'S, TUESDAY'S AND TUESDAY'S ONLY. 36 tablet 3 05/23/20 24 025 Active mycophenolate (CellCept) 250 mg capsuleIndicati ons:Transplant Heart (HCC) Take 4 capsules (1,000 mg total) by mouth 2 (two) times a day. 240 capsule 11 07/05/19 25 Active posaconazole (NoxafiL) [address] tabletIndicatio ns:Transplant Heart (HCC),Pulmonary Mucormycosis (HCC) Take 3 tablets (300 mg total) by mouth daily. 270 tablet 3 07/18/19 25 Active ezetimibe (Zetia) 10 mg tabletIndicatio ns:Transplant Heart (HCC) TAKE 1 TABLET BY MOUTH EVERY DAY 90 tablet 3 08/16/19 25 Active losartan (Cozaar) 50 mg tabletIndicatio ns:Transplant Heart (HCC) TAKE 1 TABLET BY MOUTH EVERY DAY 90 tablet 3 08/16/19 25 Active tacrolimus (Prograf) 0.5 mg capsuleIndicati ons:Aftercare Transplant Heart (HCC) Take 1 capsule (0.5 mg total) by mouth 2 (two) times a day. 60 capsule 2 08/27/19 25 Active furosemide (LASIX) 20 mg tablet Take 1 tablet (20 mg total) by mouth daily. 30 tablet 11 07/30/19 21 021 Discontinued ezetimibe (ZETIA) 10 mg tabletIndicatio ns:Transplant Heart (HCC) take 1 tablet by mouth every day 90 tablet 3 06/09/20 23 025 Discontinued losartan (COZAAR) 50 mg tabletIndicatio ns:Transplant Heart (HCC) take 1 tablet by mouth every day 90 tablet 3 06/09/20 23 025 Discontinued tacrolimus (PROGRAF) 0.5 mg capsuleIndicati ons:Aftercare Transplant Heart (HCC) Take 2 capsules (1 mg total) by mouth every morning AND 1 capsule (0.5 mg total) every evening. 270 capsule 3 09/08/19 24 025 Discontinued Active Problems Patient Care Coordination No te Formatting of this note migh t be different from the original. Transplant Date: 09/25/2020 (Heart), 09/25/2020 (Heart) Goal IS: Tac 03-15 Itraconazole status: 200mg BID until 03/28/21 CMV: D+/R- EBV: D+/R+ Toxo: D-/R+ Rejection History: Infection History: Pharmacy: [facility] Dialysis Unit: Anticoagulation: Misc: HCV maura+ donor---HCV study chief pilot Problem Noted Date Diagnosed Date Screening Examination Skin Cancer 06/24/2023 Hypertensive Heart And Chron ic Kidney Disease Without Heart Failure With Stage 1 To 4 Chronic Kidney Disease Or Unspecified Chronic Kidney Disease 06/08/2023 Reaction Drug Adverse Initial 09/01/2022 Hyperlipidemia Mixed 08/25/2022 Unspecified Mycosis 01/12/2022 Abnormal Computed Tomography Chest 01/12/2022 Mismatch Cytomegalovirus 01/12/2022 Acute Bronchitis Due To Rhinovirus 12/18/2021 Infection Upper Respiratory Viral 12/17/2021 Fever Of Unknown Origin 12/14/2021 Rejection Heart Transplant 11/26/2021 Diabetes Mellitus Drug Or Ch emical Induced With Other Complication 09/13/2021 Overview (10/19/2021): Diagnosed September 2021 when admitted with HHS and glucose level of 800 mg/dL. Initially managed with NPH insulin. No family history of diabetes. 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 No history of fractures or renal stones. Remote history of tobacco use, quit in 2017. Denies alcohol use. No family history of osteoporosis or parental history of hip fracture. 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 Brother underwent thyroidectomy, which was presumably due to Amiodarone induced hyperthyroidism. Thrombosis Deep Vein Personal History 06/05/2018 Raynaud's Phenomena Without Gangrene 06/05/2018 Overview (06/05/2018): No complications Resolved Problems Problem Noted Date Diagnosed Date Resolved Date Hypokalemia 09/11/2021 09/13/2021 Cardiomyopathy 09/28/2020 10/17/2020 Acidosis Lactic 09/26/2020 10/17/2020 Anemia Posthemorrhagic Acute (Blood Loss Anemia) 09/26/2020 10/17/2020 Acute On Chronic Systolic (C ongestive) Heart Failure 08/08/2020 10/17/2020 Pretransplant Recipient Evaluation Exam 02/25/2020 10/17/2020 Overview (02/25/2020): Added automatically from request for surgery [id number] Ventricular Tachycardia Unspecified 01/18/2020 10/17/2020 Overview (02/25/2020): January 2020: cardioverter-defibrillator interrogation revealed multiple defibrillations for ventricular tachycardia with associated exacerbation of CHF. Was started on amiodarone, Losartan added, and diuresed. Chronic Combined Systolic (C ongestive) And Diastolic (Congestive) Heart Failure 07/06/2018 Fibrillation Atrial Chronic 06/05/2018 10/17/2020 Overview (06/05/2018): He has previously undergone a cut and sew Maze operation in 2014 in [place]. That lasted about a year and then he developed recurrent atrial fibrillation. He presented in atrial fibrillation in 2011 when he presented with a renal infarct. He was found to have a left atrial clot at that time. Apnea Sleep Obstructive 06/05/201810/03 [facility] Cardioverter- Defib rillator (ICD And AICD) 06/05/2018 10/17/2020 Overview (06/05/2018): Placed Jun 2017 - [employer] - BiV Heart Failure NOS 11/11/2014 10/17/2020 Cardiomyopathy Hypertrophic 10/11/2014 10/17/2020 Encounters Date Type Department Care Team Description 08/28/2024 Orders Only Eduard Sanderson [place] for Transplantation [facility] Clinical Regeneration in [place], [place] [address] [place] [address] Audrey Guerrero R.N. Aftercare Transplant Heart (HCC) (Primary Dx) 08/27/2024 Clinical [facility] in [place], [place] [address] [place] [phone] Carmita Gallego I., Pharm.D., R.Ph., [facility] 08/24/2024 11:14 AM HUMAN RESOURCE ADVISER - 08/24/2024 11:59 PM HUMAN RESOURCE ADVISER Hospital Encounter Department of Laboratory Medicine in [address] [phone] Jesus Alberto Wong M.D. Transplant Heart ([facility]) Discharge Disposition: Home or Self Care 08/16/2024 Refill [facility] Transplantation and Clinical Regeneration in [place], [place] [address] [place] [phone] Dom Muller M.D. Med Refill 07/26/2024 Orders Only [facility] Transplantation and Clinical Regeneration in [place], [place] [address] [place] [phone] Audrey Guerrero R.N. Transplant Heart (HCC) (Primary Dx) 07/26/2024 Clinical Communication [facility] Transplantation and Clinical Regeneration in [place], [place] [address] [place] [phone] Audrey Guerrero R.N. Labs Only 07/25/2024 10:30 AM HUMAN RESOURCE ADVISER - 07/25/2024 11:59 PM HUMAN RESOURCE ADVISER Hospital Encounter Department of Laboratory Medicine in [place], [place] [address] [place] [address] Dom Muller M.D. Transplant Heart ([facility]) Discharge Disposition: Home or Self Care 07/18/2024 Refill [facility] Transplantation and Clinical Regeneration in [place], [place] [address] [place] [phone] Audrey Guerrero R.N. Med Refill 07/18/2024 Orders Only [facility] Transplantation and Clinical Regeneration in [place], [place] [address] [place] [phone] Audrey Guerrero R.N. Transplant Heart ([facility]) (Primary Dx) 07/18/2024 [facility] in [place], [place] [address] [place] [phone] Audrey Guerrero R.N. Med Refill 07/17/2024 Clinical Communication [facility] Transplantation and Clinical Regeneration in [place], [place] [address] [place] [phone] Carmita Gallego I., Pharm.D., R.Ph., BCPS Lab Monitoring 07/11/2024 Orders Only [facility] Transplantation and Clinical Regeneration in [address] [phone] Audrey Guerrero R.N. Transplant Heart ([facility]) (Primary Dx) 07/11/2024 Clinical Communication [facility] Transplantation and Clinical Regeneration in [place], [place] [address] [place] [phone] Audrey Guerrero R.N. Labs Only ([facility]) 07/10/2024 10:29 AM HUMAN RESOURCE ADVISER - 07/10/2024 11:59 PM HUMAN RESOURCE ADVISER Hospital Encounter Department of Laboratory Medicine in [address] [phone] Anderson Hewitt M.D. Transplant Heart ([facility]) Discharge Disposition: Home or Self Care 07/05/2024 Refill [facility] Transplantation and Clinical Regeneration in [place], [place] [address] [place] [phone] Dom Muller M.D. Med Refill 07/02/2024 Clinical Communication [facility] Transplantation and Clinical Regeneration in [place], [place] [address] [place] [phone] Audrey Guerrero R.N. Rx Prior Authorization (Prior Authorization ) 07/02/2024 Refill [facility] Transplantation and Clinical Regeneration in [place], [place] [address] [place] [address] Christie Alcaraz R.N., C.C.T.C. Med Refill 07/02/2024 Orders Only [facility] Transplantation and Clinical Regeneration in [place], [place] [address] [place] [address] Hakan Hawkins M.D. 06/25/2024 Refill [facility] Transplantation and Clinical Regeneration in [place], [place] [address] [place] [address] Josh Leonard R.N. Med Refill from Last 3 Months Immunizations Immunization Administration Dates Next Due HepB Adult 12/06/2018,07/10/2018,06/09/2018 Influenza, Injectable, Mdck, Preservative Free, Quadrivalent 05/26/2022 Influenza, Unspecified 05/26/2022 PCV13 06/09/2018 PPSV23 08/04/2018 RZV (SHINGRIX) 08/02/2022,05/20/2020 SARS-COV-2 (COVID-19) - MODE RNA (12 YEARS AND OLDER) Fall Seasonal 06/20/2023 SARS-COV-2 (COVID-19) - MODERNA(Discontinued) 08/18/2022 SARS-COV-2 (COVID-19) - PFIZ ER (Discontinued)(12 years or older) 02/20/2021,09/11/2020 SARS-COV-2 (COVID-19) - PFIZ ER TS(Discontinued)(12 years or older) 12/18/2021(),12/18/2021 Tdap 07/10/2018 influenza vaccine quad (FLUZONE/FLUARIX) (6 months and older)(PF) 05/26/2022,05/08/2021,05/20/2020,2017 Family History Medical History Relation Name Comments Hypertrophic cardiomyopathy Brother 1 Anderson Hypertrophic cardiomyopathy Brother 2 Luciano Hypertrophic cardiomyopathy Daughter 1 Liz Hypertrophic cardiomyopathy Grandson 2 Jason Hypertrophic cardiomyopathy Mother Lucille Hypertrophic cardiomyopathy Sister 1 Briana Diabetes Neg Hx Heart attack Neg Hx Relation Name Status Comments Brother 1 Anderson Alive Heart Transplan t Brother 2 Luciano Alive HCM - has an IC D Daughter 1 Liz Alive Daughter 2 Amparo Alive Unknown status Father Omkar Alive Granddaughter Rico Alive Negative Grandson 1 Marco Alive Neg Grandson 2 Jason Alive Mother Lucille Alive HCM and atrial fibrillation Sister 1 Briana Alive HCM and ICD Sister 2 Odalis Alive ? Syncope - unk nown status Sister 3 Delilah Alive No known hx of HCM Sister 4 Patricia Alive Neg hx of HCM Sister 5 Yanick Alive No known hx of HCM Social History Tobacco Use Types Packs/Day Years Used Date Smoking Tobacco: Former Cigarettes Q uit: 04/17/2018 Smokeless Tobacco: Never Tobacco Cessation:Counseling Given: Not Answered Alcohol Use Standard Drinks/Week Comments Not Currently 0 (1 standard drink = 0.6 oz pur e alcohol) [facility] Utilities Answer Date Recorded In the past 12 months has e electric, gas, oil, or water [employer] threatened to shut off services in your [...] any clubs o r organizations such as methodist groups, unions, fraternal or athletic groups, or [...] Answer Date Recorded PHQ-2 Score 0 09/30/2021 [facility] - [...] your living situation today? I have a [facility] [place] place to live 09/28/2023 Education Answer Date Recorded What is the highest level of school you have completed or the highest degree you have received? Associate degree: occupational, technical, or vocational program 03/16/2020 Sex and Gender Information Value Date Recorded Sex Assigned at Male 03/23/2021 4:58 PM CDT Legal Sex Male 8:21 PM HUMAN RESOURCE ADVISER Gender Identity Male 06/01/2018 2:20 PM HUMAN RESOURCE ADVISER Sexual Orientation Straight 06/01/2018 2: 20 PM HUMAN RESOURCE ADVISER Last Filed Vital Signs Vital Sign Reading Time Taken Comments Blood Pressure 111/71 10/04/2023 1:01 PM CDT Pulse 66 10/04/2023 12:46 PM CDT Temperature 36.8 C (98.2 F) 10/04/2023 9:49 AM CDT Respiratory Rate 13 10/04/2023 11:15 AM CDT Oxygen Saturation 98% 10/04/2023 12:46 PM CDT Inhaled Oxygen Concentration - - Weight 85.7 kg (188 lb 15 oz) 10/04/2023 9:23 AM CDT Height 177.5 cm (5' 9.88) 10/04/2023 9:23 AM CD T Body Mass Index 27.2 10/04/2023 9:23 AM CDT Plan of Treatment Upcoming Encounters Date Type Department Care Team (Late st Contact Info) Description 09/11/2024 10:20 AM CDT Appointment Department of Laboratory Medicine in [place], [place] [address] [place] [phone] Jesus Alberto Wong M.D. [address] [place] [phone] 09/21/2024 10:00 AM CDT Nurse Only Eduard Sanderson [place] for Trans[facility] Clinical Regeneration in [place], [place] [address] [place] [phone] Anderson Hewitt M.D. [address] [place] [phone] Audrey Guerrero R.N. [address] [place] [phone] 09/25/2024 6:20 AM CDT Lab Department of Laboratory Medicine and Pathology, [facility] in [place], [place] [address] [place] [address] Anderson Hewitt M.D. [address] [place] [phone] 09/25/2024 6:30 AM CDT Lab Department of Laboratory Medicine and Pathology, [facility] in [place], [place] [address] [place] [address] Anderson Hewitt M.D. [address] [place] [phone] 09/25/2024 6:40 AM CDT Lab Department of Laboratory Medicine and Pathology, [facility] in [place], [place] [address] [place] [address] Anderson Hewitt M.D. [address] [place] [phone] 09/25/2024 7:00 AM CDT Appointment Department of Radiology, [facility] in [place], [place] [address] [place] [address] Anderson Hewitt M.D. [address] [place] [phone] 09/25/2024 8:00 AM CDT [facility] [place] [place] [address] [place] [address] Anderson Hewitt M.D. [address] [place] [address] 09/25/2024 10:20 AM CDT Ancillary Procedure Department of Cardiovascular Medicine in [place], [place] [address] [place] [address] Anderson Hewitt M.D. [address] [place] [phone] 09/25/2024 2:45 PM CDT Appointment Department of Cardiovascular Diseases in [place], [place] [address] [place] [address] Anderson Hewitt M.D. [address] [place] [phone] 09/26/2024 8:50 AM CDT Appointment Department of Cardiovascular Diseases in [place], [place] [address] [place] [address] Anderson Hewitt M.D. [address] [place] [phone] 09/26/2024 2:15 PM CDT Office Visit Eduard murguia [facility] for Transplantation and Clinical Regeneration in [place], [place] [address] [place] [phone] Anderson Hewitt M.D. [address] [place] [phone] 10/17/2024 10:40 AM CDT Comprehensive Visit Department of Dermatology in [place], [place] [address] [place] [phone] Zoya Chery M.D. [address] [place] [phone] 10/24/2024 10:30 AM CDT Appointment Department of Laboratory Medicine in [place], [place] [address] [place] [phone] Anderson Hewitt M.D. [address] [place] [address] Health Maintenance Due Date Last Done Comments CT Colonography 1959 Cologuard 1959 Diabetic Office Visit with Foot Exam 1959 Meningococcal Vaccine (1 - Risk 2-dose series) 1961 MenB Vaccine (1 of 5 - Increased Risk) 1969 Hepatitis A Vaccines (1 of 2 - Risk 2-dose series) 1978 FIT 10/06/2022 10/06/2021 Urine Albumin 12/10/2022 12/10/2021 Dilated Eye Exam 02/18/2023 02/18/2022 Pneumococcal vaccine (50+ years) (3 of 3 - PPSV23, PCV20 or PCV21) 08/04/2023 08/04/2018, 06/09/2018 Hemoglobin A1C 04/03/2024 10/03/2023, 08/05, 09/11/2021, Additional history exists Depression Screening (Annual PHQ-2) 07/04/2024 Fall Risk Screen (Annual) 07/04/2024 Lipid (Cholesterol) Screening 10/02/2024 10/03/2023, 06/08/2023, 12/01/2022, Additional history exists Office Visit for Blood Pressure Check / Re-check 10/02/2024 10/03/2023 Thyroid Stimulating Hormone (TSH) test for thyroid function 10/02/2024 10/03/2023, 09/09/2023, 06/08/2023, Additional history exists COVID-19 Vaccine (8 - Pfizer risk 2023- season) 2024 06/18/2024, 06/20/2023, 08/18/2022, Additional history exists Creatinine Level (Kidney Function Test) 08/24/2025 08/24/2024, 07/25/2024, 07/10/2024, Additional history exists Potassium Level 08/24/2025 08/24/2024, 07/05, 07/10/2024, Additional history exists Sodium Level 08/24/2025 08/24/2024, 07/05, 07/10/2024, Additional history exists Colonoscopy 06/13/2028 06/13/2018, 06/03, 06/13/2018 Colorectal Cancer Screening 06/13/2028 DTaP,Tdap,and Td Vaccines (2 - Td or Tdap) 07/10/2028 07/10/2018 Abdominal Aortic Aneurysm (AAA) Screen Completed 06/07/2018 Hepatitis B Vaccines Completed 12/06/2018, 07/10/2018, 06/09/2018 HIV Screening Completed 09/25/2020, 09/02, 03/21/2020, Additional history exists Hepatitis B Screening Completed 09/25/2020 , 09/21/2020, 03/21/2020, Additional history exists Zoster Vaccines Completed 08/02/2022, 05/20/2020 RSV vaccine - (32-36 weeks) or 60+ years Completed 06/20/2023 Influenza Vaccine Completed 06/18/2024, , 05/26/2022, Additional history exists HPV Vaccines Aged Out No longer eligi ble based on patient's age to complete this topic IPV Vaccines Aged Out No longer eligi ble based on patient's age to complete this topic Medical Devices Implanted Type Area Machine Adjuster Helper Device Identifier Shelf Expiration Date Model / Serial / Lot Clp Hrzn Ti 6 Clp Nathan - [id number] Implanted:Qty : 2 on 09/25/2020 by Javid Hopkins M.D. at [facility] [employer] e.g. pins/screws/ rods Janalakshmi [id number] 02/25/2025 [id number] / / [id number] Explanted Type Area Machine Adjuster Helper Device Identifier Shelf Expiration Date Model / Serial / Lot Lead [employer] [id number] Implanted: (Quantity not on file) Explanted:Qty : 1 on 09/25/2020 by Javid Hopkins M.D. at [facility] Cardiac Lead Other/Legacy - See Implant Description [employer] / [id number] / Description:LEAD [employer] [id number] Acuity X4 Spiral Short Lead [employer] [id number] Implanted:02/2012 (Quantity not on file) Explanted:Qty : 1 on 09/25/2020 by Javid Hopkins M.D. at [facility] Cardiac Lead Other/Legacy - See Implant Description [employer] / [id number] / Description:LEAD [employer] [id number] 6849 [place] 4-Site SG Card Pacem 44[address] Ii Sterox Ez [id number] Explanted:Qty : 1 on 09/25/2020 by Javid Hopkins M.D. at [facility] Cardiac Lead Cardiac Pacemakers 4470 FINELINE II STEROX EZ / [id number] / Icd [employer] [id number] Implanted:02/2012 (Quantity not on file) Explanted: (Quantity not on file) Implant Cardiac Defibrillator Chest [employer] / [id number] / Description:ICD [employer] [id number] E142 LYNNETTE GARCIA Conversions - Default Historical Implant Device Implanted:05/2015 (Quantity not on file) Explanted:Qty : 1 on 09/25/2020 by Javid Hopkins M.D. at [facility] Implant Cardiac Defibrillator Description:Device Status Te xt - Defib. Icd [employer] [id number] Implanted: (Quantity not on file) Explanted:Qty : 1 on 09/25/2020 by Javid Hopkins M.D. at [facility] Implant Cardiac Defibrillator Chest [employer] / [id number] / Description:ICD [employer] [id number] G247 Vigilant X4 EQUIPMENT OR MACHINERY CLEANER-D Procedures Procedure Name Priority Date/Time Associated Diagnosis Comments TACROLIMUS LEVEL, B Routine 08/24/2024 11:22 AM HUMAN RESOURCE ADVISER Transplant Heart (HCC) MAGNESIUM, S Routine 08/24/2024 11:22 AM HUMAN RESOURCE ADVISER Transplant Heart (HCC) CBC WITH DIFFERENTIAL, B Routine 08/24/2024 11:22 AM HUMAN RESOURCE ADVISER Transplant Heart (HCC) BASIC METABOLIC PANEL, S/P Routine 08/24/2024 11:22 AM HUMAN RESOURCE ADVISER Transplant Heart (HCC) POSACONAZOLE, S Routine 08/24/2024 11:22 AM HUMAN RESOURCE ADVISER Transplant Heart (HCC) TACROLIMUS LEVEL, B Routine 07/25/2024 10:39 AM HUMAN RESOURCE ADVISER Transplant Heart (HCC) BASIC METABOLIC PANEL, S/P Routine 07/25/2024 10:39 AM HUMAN RESOURCE ADVISER Transplant Heart (HCC) POSACONAZOLE, S Routine 07/10/2024 10:39 AM HUMAN RESOURCE ADVISER Transplant Heart (HCC) TACROLIMUS LEVEL, B Routine 07/10/2024 10:39 AM HUMAN RESOURCE ADVISER Transplant Heart (HCC) MAGNESIUM, S Routine 07/10/2024 10:39 AM HUMAN RESOURCE ADVISER Transplant Heart (HCC) CBC WITH DIFFERENTIAL, B Routine 07/10/2024 10:39 AM HUMAN RESOURCE ADVISER Transplant Heart (HCC) BASIC METABOLIC PANEL, S/P Routine 07/10/2024 10:39 AM HUMAN RESOURCE ADVISER Transplant Heart (HCC) HEMOGLOBIN A1C, B Routine 10/03/2023 9:0 0 AM CDT Transplant Heart (HCC) Chronic Kidney Disease Stage 4 Glomerular Filtration Rate 15-29 (HCC) Screening Examination Skin Cancer Diabetes Mellitus Drug Or Chemical Induced With Chronic Kidney Disease (HCC) LIPID PANEL, S Routine 10/03/2023 9:00 AM CDT Transplant Heart (HCC) Chronic Kidney Disease Stage 4 Glomerular Filtration Rate 15-29 (HCC) Screening Examination Skin Cancer THYROID FUNCTION CASCADE, S Routine 10/03/2023 9:00 AM CDT Transplant Heart (HCC) Chronic Kidney Disease Stage 4 Glomerular Filtration Rate 15-29 (HCC) Screening Examination Skin Cancer Diabetes Mellitus Drug Or Chemical Induced With Chronic Kidney Disease (HCC) ALBUMIN, RANDOM, U Routine 12/10/2021 11 :24 AM CDT Chronic Kidney Disease (CKD), Stage 3b Glomerular Filtration Rate (GFR) 30 To 44 (HCC) Hypertension Essential Primary HIV-1/-2 AG AND AB SCREEN, PLASMA STAT 09/25/2020 2:05 AM [facility] HEPATITIS B SURFACE ANTIGEN STAT 09/25/2020 2:04 AM [facility] COLONOSCOPY Routine 06/13/2018 1:03 PM [facility] Transplant Heart (HCC) CT ABDOMEN PELVIS WITHOUT IV CONTRAST RAD - Routine (most inpatients and all outpatients) 06/07/2018 9:07 AM [facility] Cardiomyopathy Hypertrophic (HCC) from Last 3 Months or Most Recently Relevant to Health Maintenance Results * Posaconazole (Noxafil), Level (08/24/2024 11:22 AM HUMAN RESOURCE ADVISER) Only the most recent of2 resultswithin the time period is included. Posaconazole, S 2340 >700 ng/mL 08/26/2024 2:00 PM [facility] Comment: ----ADDITIONAL INFORMATION---- This test was developed and its performance characteristics determined by [facility] in a manner consistent with CLIA requirements. This test has not been cleared or approved by the U.S. Food and Drug Administration. Blood (Blood, Venous) 08/24/2024 11:22 AM HUMAN RESOURCE ADVISER 08/25/2024 7:33 AM HUMAN RESOURCE ADVISER Jesus Alberto Wong M.D. LAB BLOOD NON ADD-ON Final Result [facility] [address] [place] [address] [facility] [address] [place] [address] [place] [address] * Tacrolimus, Trough (08/24/2024 11:22 AM HUMAN RESOURCE ADVISER) Only the most recent of3 resultswithin the time period is included. Tacrolimus, Trough 10.8 5.0-15.0 (Trough) ng/mL 08/25/2024 10:33 AM [facility] Comment: ----ADDITIONAL INFORMATION---- Target steady-state trough concentrations [...] Administration. Blood (Blood, Venous) 08/24/2024 11:22 AM HUMAN RESOURCE ADVISER 08/25/2024 7:24 AM HUMAN RESOURCE ADVISER us Hakan Hawkins M.D. LAB BLOOD NON ADD-ON Fin al Result [facility] [address] [place] [address] [facility] [address] [place] [address] [place] [address] * (ABNORMAL) CBC with Differential, Blood (08/24/2024 11:22 AM HUMAN RESOURCE ADVISER) Only the most recent of2 resultswithin the time period is included. Hemoglobin 11.2(L) 13.2 - 16.6 g/dL 08/24/2024 11:27 AM HUMAN RESOURCE ADVISER FB60 Hematocrit 35.3(L) 38.3 - 48.6 % 08/24/2024 11:27 AM HUMAN RESOURCE ADVISER FB60 Erythrocytes 3.99(L) 4.35 - 5.65 x10(12)/L 08/24/2024 11:27 AM HUMAN RESOURCE ADVISER FB60 MCV 88.5 78.2 - 97.9 fL 08/24/2024 11:27 AM HUMAN RESOURCE ADVISER FB60 RBC Distrib Width 13.4 11.8 - 14.5 % 08/24/2024 11:27 AM HUMAN RESOURCE ADVISER FB60 Platelet Count 262 135 - 317 x10(9)/L 08/24/2024 11:27 AM HUMAN RESOURCE ADVISER FB60 Leukocytes 9.8(H) 3.4 - 9.6 x10(9)/L 08/24/2024 11:27 AM HUMAN RESOURCE ADVISER FB60 Neutrophils 7.80(H) 1.56 - 6.45 x10(9)/L 08/24/2024 11:27 AM HUMAN RESOURCE ADVISER FB60 Lymphocytes 0.91(L) 0.95 - 3.07 x10(9)/L 08/24/2024 11:27 AM HUMAN RESOURCE ADVISER FB60 Monocytes 0.71 0.26 - 0.81 x10(9)/L 08/24/2024 11:27 AM HUMAN RESOURCE ADVISER FB60 Eosinophils 0.37 0.03 - 0.48 x10(9)/L 08/24/2024 11:27 AM HUMAN RESOURCE ADVISER FB60 Basophils <0.04 0.01 - 0.08 x10(9)/L 08/24/2024 11:27 AM HUMAN RESOURCE ADVISER FB60 Blood (Blood, Venous) 08/24/2024 11:22 AM HUMAN RESOURCE ADVISER 08/24/2024 11:22 AM HUMAN RESOURCE ADVISER us Hakan Hawkins M.D. LAB BLOOD ADD-ON Final R esult Performing Organization Address City/[facility]/ZIP Co de Phone Number [facility] [address] [place] [address], [place] FB60 [facility] [place] [address] [place] [address] * (ABNORMAL) Magnesium (08/24/2024 11:22 AM HUMAN RESOURCE ADVISER) Only the most recent of2 resultswithin the time period is included. Magnesium, P 1.6(L) 1.7 - 2.3 mg/dL 08/24/2024 1:11 PM HUMAN RESOURCE ADVISER OWAT Blood (Blood, Venous) 08/24/2024 11:22 AM HUMAN RESOURCE ADVISER 08/24/2024 1:11 PM HUMAN RESOURCE ADVISER Hakan Hawkins M.D. LAB BLOOD ADD-ON Final R esult [facility] [address] [place] [address], [place] OWAT [facility] [place] [address] [place] [address] * (ABNORMAL) Basic Metabolic Panel (08/24/2024 11:22 AM HUMAN RESOURCE ADVISER) Only the most recent of3 resultswithin the time period is included. Potassium, P 3.9 3.6 - 5.2 mmol/L 08/24/2024 1:11 PM HUMAN RESOURCE ADVISER OWAT Sodium, P 140 135 - 145 mmol/L 08/24/2024 1:11 PM HUMAN RESOURCE ADVISER OWAT Chloride, P 102 98 - 107 mmol/L 08/24/2024 1:11 PM HUMAN RESOURCE ADVISER OWAT Bicarbonate, P 22 22 - 29 mmol/L 08/24/2024 1:11 PM HUMAN RESOURCE ADVISER OWAT Anion Gap, P 16(H) 7 - 15 08/24/2024 1:11 PM HUMAN RESOURCE ADVISER OWAT BUN (Blood Urea Nitrogen), P 35(H) 8 - 24 mg/dL 08/24/2024 1:11 PM HUMAN RESOURCE ADVISER OWAT Creatinine 2.58(H) 0.74 - 1.35 mg/dL 08/24/2024 1:11 PM HUMAN RESOURCE ADVISER OWAT Estimated GFR (eGFR) 27(L) >=60 mL/min/BSA 08/24/2024 1:11 PM HUMAN RESOURCE ADVISER OWAT Comment: Estimated GFR calculated using the 2020 CKD_EPI creatinine equation. Calcium, Total, P 9.1 8.8 - 10.2 mg/dL 08/24/2024 1:11 PM HUMAN RESOURCE ADVISER OWAT Glucose, P 111 70 - 140 mg/dL 08/24/2024 1:11 PM HUMAN RESOURCE ADVISER OWAT Blood (Blood, Venous) 08/24/2024 11:22 AM HUMAN RESOURCE ADVISER 08/24/2024 1:11 PM HUMAN RESOURCE ADVISER us Hakan Hawkins M.D. LAB BLOOD ADD-ON Final R esult [facility] [address] [place] [address], [facility] OWAT [facility] [place] [address] [place] [address] * (ABNORMAL) Lipid Panel (10/03/2023 9:00 AM CDT) Triglycerides 356(H) mg/dL 10/03/2023 10:11 AM CDT DTL Comment: ----REFERENCE VALUE---- Normal: <150 mg/dL Borderline High: 150-199 mg/dL High: 200-499 mg/dL Very High: > or =500 mg/dL Cholesterol, Total 141 mg/dL 2023 10:11 AM CDT DTL Comment: ----REFERENCE VALUE---- Desirable: < 200 mg/dL Borderline High: 200 - 239 mg/dL High: > or = 240 mg/dL Cholesterol, LDL, Calculated 43 mg/dL 10/03/2023 10:11 AM CDT DTL Comment: ----REFERENCE VALUE---- Desirable: <100 mg/dL Above Desirable: 100-129 mg/dL Borderline High: 130-159 mg/dL High: 160-189 mg/dL Very High: >=190 mg/dL ----ADDITIONAL INFORMATION---- LDL cholesterol calculated using the Bernabe/NIH equation. Cholesterol, HDL, S 45 >=40 mg/dL 10/03/2023 10:11 AM CDT DTL Cholesterol, Non-HDL, Calculated 96 mg/dL 10/03/2023 10:11 AM CDT DTL Comment: ----REFERENCE VALUE---- Desirable: <130 mg/dL Above Desirable: 130-159 mg/dL Borderline High: 160-189 mg/dL High: 190-219 mg/dL Very High: > or =220 mg/dL Fasting (8 HR or more) Unknown 10/03/2023 9:40 AM CDT DTL Blood (Blood, Venous) 10/03/2023 9:00 AM CDT 10/03/2023 9:40 AM CDT us Dom Muller M.D. LAB BLOOD ADD-ON Final Re sult [facility] [address] [place] [address], [facility] DTGainesville Va [facility] Center LaboratoriesB[facility] [address] [place] [address] * Thyroid Function [place] (10/03/2023 9:00 AM CDT) TSH, Sensitive 3.5 0.3 - 4.2 mIU/L 10/03/2023 10:11 AM CDT DTL Blood (Blood, Venous) 10/03/2023 9:00 AM CDT 10/03/2023 9:40 AM CDT Dom Muller M.D. LAB BLOOD ADD-ON Final Re sult Performing Organization Address [facility] Co de Phone Number [facility] [address] [place] [address], [facility] DTAscension SE [facility] [address] [place] [address] * (ABNORMAL) Hemoglobin A1c (10/03/2023 9:00 AM CDT) Hemoglobin A1c, B 5.8(H) 4.0 - 5.6 % 10/03/2023 10:22 AM CDT DTL Comment: Hemoglobin A1c values of 5.7-6.4 percent indicate an increased risk for developing diabetes mellitus. In diabetic patients, HbA1c goals should be discussed with healthcare provider. Blood (Blood, Venous) 10/03/2023 9:00 AM CDT 10/03/2023 9:20 AM CDT Dom Muller M.D. LAB BLOOD ADD-ON Final Re sult Performing Organization Address [facility] Co de Phone Number [facility] [address] [place], [place] [address] [address] [address] * (ABNORMAL) Albumin, Random, Urine (12/10/2021 11:24 AM CDT) Albumin, Random, U 202.6 mg/L 2021 1:49 PM CDT DTL Comment: ----ADDITIONAL INFORMATION---- This test has been modified from the rating officer's instructions. Its performance characteristics were determined by [facility] in a manner consistent with CLIA requirements. This test has not been cleared or approved by the U.S. Food and Drug Administration. Creatinine 166 mg/dL 12/10/2021 11:59 AM CDT DTL Albumin/Creatinine Ratio 122(H) <17 mg/g 12/10/2021 1:49 PM CDT DTL Urine (Urine, Midstream) 12/10/2021 11:24 AM CDT 12/10/2021 11:50 AM CDT Jess Coronel M.D. LAB URINE ORDERABLES Final R esult Performing Organization Address [facility] Co de Phone Number [facility] [address] [place] [address], [place] DTL [facility] [address] [place] [address] * HIV-1/-2 Ag and Ab Screen, Plasma (09/25/2020 2:05 AM [facility]) [facility] HIV-1/-2 Ag and Ab Screen, P Negative Negative 09/25/2020 9:54 AM [facility] Comment: Negative result does not rule out HIV infection. If exposure to HIV infection occurred <14 days ago, contact the laboratory to request addition of HIV-1 RNA detection / quantification test (HIVQN). Blood (Blood, Venous) 09/25/2020 2:05 AM MST 09/25/2020 6:50 AM [facility] Patricia Moreno P.A.-C. LAB MICROBIOLOGY - BL OOD ORDERABLES Final Result Performing Organization Address City/[facility] Co de Phone Number [facility] [address] [place], [place] [address] [phone] [facility] [address] [place] [address] * Hepatitis B Surface Antigen (09/25/2020 2:04 AM [facility]) Pathologist [facility] HBs Antigen, S Negative 09/25/2020 8:21 AM [facility] Blood (Blood, Venous) 09/25/2020 2:04 AM MST 09/25/2020 7:02 AM [facility] Patricia Moreno P.A.-C. LAB MICROBIOLOGY - BL OOD ORDERABLES Final Result [facility] [address] [place] [address], [facility] [phone] [facility] [address] [place] [address] * CT Abdomen Pelvis without IV Contrast (06/07/2018 9:07 AM [facility]) Anatomical Region Laterality Modality Abdomen, Pelvis, Abdominal R ST LOS, Abdominal ARZ LOS, Abdominal FLA LOS N/A Computed Tomography 06/07/2018 9:31 AM [facility] Impressions 06/07/2018 9:54 AM [facility] IMPRESSION: 1. No suspicious abdominal mass. Narrative 06/07/2018 9:54 AM [facility] EXAM: CT ABDOMEN PELVIS WITHOUT IV CONTRAST CLINICAL INFORMATION: Preheart transplant COMPARISON: None TECHNIQUE: Oral contrast material only. FINDINGS: Global cardiac chamber enlargement, lung bases are clear. Simple hepatic cysts seen in the left hepatic lobe. No suspicious liver mass on this noncontrast study. The gallbladder is normal. Spleen is normal in size. Fatty atrophy to the pancreas. No suspicious mass. Kidneys are normal. No hydronephrosis. No enlarged abdominal or pelvic lymph nodes. Oral contrast distally to the small bowel without segments of inflammation, or obstruction. Diverticulosis of the descending colon. No inflammation. No suspicious osseous lesion. Procedure Note Paris Vidal M.D. - 06/07/2018 EXAM: CT ABDOMEN PELVIS WITHOUT IV CONTRAST CLINICAL INFORMATION: Preheart transplant COMPARISON: None TECHNIQUE: Oral contrast material only. FINDINGS: Global cardiac chamber enlargement, lung bases are clear. Simple hepatic cysts seen in the left hepatic lobe. No suspicious livermass on this noncontrast study. The gallbladder is normal. Spleen is normal insize. Fatty atrophy to the pancreas. No suspicious mass. Kidneys are normal.No hydronephrosis. No enlarged abdominal or pelvic lymph nodes. Oral contrast distally to the small bowel without segments ofinflammation, or obstruction. Diverticulosis of the descending colon. No inflammation. No suspicious osseous lesion. IMPRESSION: 1. No suspicious abdominal mass. Bob Rahman M.D. 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 Advance Directives 07/10/2018 10:07 PM [facility] Directive * Full Code (Latest Code Status on File) Date Activated Date Inactivated Comments 12/17/2021 3:02 PM 12/18/2021 5:14 PM Question Answer Comments Full Code: Discussed * Full Code Date Activated Date Inactivated Comments 12/14/2021 11:53 AM 12/17/2021 3:02 PM Question Answer Comments Full Code: Discussed * Full Code Date Activated Date Inactivated Comments 09/11/2021 2:02 PM 09/13/2021 3:50 PM Question Answer Comments Full Code: Discussed * Full Code Date Activated Date Inactivated Comments 09/25/2020 1:21 PM 10/06/2020 8:14 PM Question Answer Comments Full Code: Discussed * Full Code Date Activated Date Inactivated Comments 08/08/2020 1:01 PM 08/09/2020 5:56 PM Question Answer Comments Full Code: Discussed Healthcare Agents on File Name Relationship Healthcare Agent Relationship Communication Inga Coppola Spouse Health Care Agent Anderson Coppola Brother First Alternate Health Care Agent Care Teams Environment 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
--- NOTE | 2024-08-30 18:27 | ED.GENADULT ---
HPI - General Adult General Date Seen: 08/30/24 Chief complaint: Cough Stated complaint: 2-week cold Time Seen by Provider: 08/30/24 17:05 History of Present Illness HPI narrative: Patient is a 64-year-old male with pertinent past medical history of heart transplant 4 years ago. He notes that a couple of weeks ago his got sick with what he says was ultimately diagnosis pneumonia. She actually left at the start of her illness to go help take care of her mother, but he says he got sick shortly thereafter. He did take COVID and influenza tests at home which were both negative. He does not feel any worse but he just does not feel like it is getting better and he was concerned about his decreased immune system due to his anti rejection drugs. He has run some fevers, nothing above 99 in the recent few days. Cough continues to bother him any coughs up some sputum at times. He denies shortness of breath. He does have some chest pain with coughing. His congestion is improved. Related Data Home Medications ?Medication ?Instructions ?Recorded ?Confirmed acetaminophen 500 mg capsule 500 mg PO Q6H PRN 08/27/22 08/30/24 aspirin 81 mg capsule 81 mg PO DAILY 08/27/22 08/30/24 clonidine 0.3 mg/24 hr weekly 1 patch transdermal QWEEK 08/27/22 08/30/24 transdermal patch ([id number]) famotidine 20 mg tablet 20 mg PO DAILY 08/27/22 08/30/24 levothyroxine 50 mcg capsule 50 mcg PO DAILY 08/27/22 08/30/24 mycophenolate mofetil 250 mg 750 mg PO BID 08/27/22 08/30/24 capsule (CellCept) posaconazole 100 mg tablet,delayed 200 mg PO DAILY 08/27/22 08/30/24 release (Noxafil) prednisolone 5 mg tablet 5 mg PO DAILY 08/27/22 08/30/24 sulfamethoxazole 400 1 tab PO TID 08/27/22 08/30/24 mg-trimethoprim 80 mg tablet (Bactrim) tacrolimus 0.5 mg capsule, 0.5 mg PO BID 08/27/22 08/30/24 immediate-release (Prograf) losartan 50 mg tablet 50 mg PO DAILY 09/26/23 08/30/24 ezetimibe 10 mg tablet 10 mg PO DAILY 08/30/24 08/30/24 Allergies Allergy/AdvReac Type Severity Reaction Status Date / Time lisinopril Allergy Unknown Verified 08/30/24 17:13 Review of Systems Status of ROS: Reports: 6 or more systems reviewed and unremarkable except as noted in History and below [facility] Medical History Chronic kidney disease, stage 4 (severe) ?N18.4 - Chronic kidney disease, stage 4 (severe) (ICD-10) Hyperlipidemia ?E78.5 - Hyperlipidemia, unspecified (ICD-10) 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 - Pulmonary mucormycosis (ICD-10) Surgical History Status post heart transplant ?Z94.1 - Heart transplant status (ICD-10) Social History Smoking Status: Former smoker What tobacco products do you use: cigars Do you use any of these nicotine containing products: None Second hand tobacco smoke exposure: No How often do you have a drink containing alcohol: never How often do you have six or more drinks on one occasion: Never AUDIT-C Alcohol total score: 0 Non-prescribed substance use: denies use Caffeine: Yes (SODA & OFFEE DAILY) service: No Exam Narrative: Exam Narrative: Vital signs reviewed In general, alert, nontoxic elderly male. Breathing easily. Head: Normocephalic, atraumatic. Eyes: Sclera clear. Pupils equal and reactive. ENT: Mucous membranes moist. Neck: Supple without adenopathy. Heart: Regular rate and rhythm without murmur. Lungs: Clear. No increased work of breathing, crackles or wheezes. Abdomen: Soft, nontender to palpation. Extremities: Well perfused, pulses intact. No significant edema. Neurologic: Alert, conversant. Speech fluent, face symmetric. Moves all extremities equally. Skin: Warm, dry well perfused. Affect: Normal. Const: Vital Signs, click to edit/add: Vital Signs - 24 hr 08/30/24 17:04 08/30/24 19:13 Temperature 97.8 F 97.3 F L Pulse Rate [Right Pulse Oximeter] 89 76 Respiratory Rate 18 18 Blood Pressure [Ri ght Upper Arm] 144/87 H 144/98 H Pulse Oximetry 98 98 Oxygen Delivery Me thod Room Air Room Air Course Course ED Course: Overall he is well appearing, vital signs are reassuring and I do not find anything concerning on exam. However, given his immune suppression I am going to do an x-ray and some basic labs. Chest x-ray by my review shows median sternotomy wires, I do not see evidence of consolidation or significant pulmonary edema or pleural effusion. Awaiting radiology read. Radiology also reads a chest x-ray as negative for any acute findings. His lab work is notable for a mildly elevated white blood cell count 01703 with a left shift 90% neutrophils. His CRP is mildly elevated at 3.3 metabolic panel notable also for a creatinine of 2.3 which sounds like it is about his baseline. He remains well appearing, breathing easily, vital signs normal. I have a lower threshold to treat him for possible developing pneumonia given his labs and immunosuppression. I am going to prescribe doxycycline, reviewed with him that it is very possible the symptoms are all viral and the antibiotic may not make a difference in terms of his cough. Postviral cough lasting several weeks is not unusual. However, if he feels he is worsening, develops fevers or chills, vomiting, shortness of breath, weakness or other worsening return any time to the emergency department. See primary care if not improving over the next 1-2 weeks. Vital Signs Vital signs: Initial Vital Signs Temperature 97.8 F 08/30/24 17:04 Temperature Source Temporal Artery Scan 08/30/24 17:04 Pulse Rate 89 08/30/24 17:04 Pulse Rhythm Regular 08/30/24 17:04 Pulse Strength 3+ Normal 08/30/24 17:04 Respiratory Rate 18 08/30/24 17:04 Blood Pressure 144/87 H 08/30/24 17:04 Blood Pressure Mean 106 H 08/30/24 17:04 Blood Pressure Position Sitting 08/30/24 17:04 Pulse Oximetry 98 08/30/24 17:04 Oxygen Delivery Method Room Air 08/30/24 17:04 Vital Signs Temperature 97.8 F 08/30/24 17:04 Pulse Rate 89 08/30/24 17:04 Respiratory Rate 18 08/30/24 17:04 Blood Pressure 144/87 H 08/30/24 17:04 Pulse Oximetry 98 08/30/24 17:04 Oxygen Delivery Method Room Air 08/30/24 17:04 Temperature 97.3 F L 08/30/24 19:13 Pulse Rate 76 08/30/24 19:13 Respiratory Rate 18 08/30/24 19:13 Blood Pressure 144/98 H 08/30/24 19:13 Pulse Oximetry 98 08/30/24 19:13 Oxygen Delivery Method Room Air 08/30/24 19:13 Medical Decision Making Lab Data Labs: Lab Results 08/30/24 Range/Units 18:37 WBC 14.00 H (4.50-11.00) K/uL RBC 4.05 L (4.30-5.90) m/uL Hgb 11.3 L (13.5-17.5) gm/dL Hct 35.7 L (37.0-53.0) % MCV 88 (80-100) fL MCH 28 (26-34) pg MCHC 32 (32-36) gm/dL RDW Coeff of Elmer 13.1 (11.5-15.5) % Plt Count 323 (140-440) K/uL Neut % (Auto) 89.9 H (42.0-72.0) % Lymph % (Auto) 3.7 L (20-44) % [place] % (Auto) 4.1 (0.0-11.0) % Eos % (Auto) 0.7 (0.0-7.0) % Baso % (Auto) 0.1 (0.0-3.0) % Neut # (Auto) 12.60 H (1.7-7.0) K/uL Lymph # (Auto) 0.50 L (0.90-2.90) K/uL [place] # (Auto) 0.60 (0.00-0.90) K/UL Eos # (Auto) 0.10 (0.00-0.50) K/uL Baso # (Auto) 0.00 (0.00-0.30) K/uL Abs Immat Gran (auto) 0.20 (0.00-0.30) K/uL Imm/Tot Granulo (auto) 1.5 % Sodium 135 (135-149) mmol/L Potassium 5.3 H (3.6-5.1) mmol/L Chloride 102 (96-114) mmol/L Carbon Dioxide 23 (20-32) mmol/L Anion Gap 10 (7-15) mEq/L BUN 28 (7-30) mg/dL Creatinine 2.3 H (0.5-1.5) mg/dL Estimated Creat Clear 33.06 Estimated GFR 31 ml/min Glucose 124 H (60-115) mg/dL Calcium 8.9 (8.4-10.6) mg/dL C-Reactive Protein 3.3 H (0.5-1.0) mg/dL Imaging Data Chest x-ray: Attestation: I have reviewed the pertinent imaging results. Radiologist's impression: Patient: Ryan Coppola MR#: [id number] : 1960 Acct:[id number] Loc: ED Service Date: 08/30/[address]: Ordering Physician: Patricia Donnelly M.D. Date of Service: 08/30/24 Procedure(s): XR chest 2V Accession Number(s): [id number] cc: Patricia Donnelly M.D.; Kaushal Salomon M.D.~ For Patients: As a result of the Cures Act, medical imaging exams and procedure reports are released immediately into your electronic medical record. You may view this report before your referring provider. If you have questions, please contact your health care provider. INDICATION: Cough. TECHNIQUE: Chest 2 views. COMPARISON: None. FINDINGS: Cardiovascular and mediastinum: Normal heart size. Prior median sternotomy. Mildly uncoiled thoracic aorta. Lungs and pleural spaces: No focal consolidation, pleural effusion, or pneumothorax. Bones and soft tissues: Unremarkable for age. IMPRESSION: No evidence of an acute pulmonary process. Dictated by Venkata Merritt MD @ 08/30/2024 6:37:37 PM Discharge Plan Discharge Clinical Impression: Cough Condition: Stable Instructions: Acute Cough (ED) Additional Instructions: Take the antibiotic, doxycycline, as prescribed. Your symptoms may well be viral and just need more time to improve, so as long as you are not getting worse, I do not think we need to necessarily be seen again unless you are not improving at all over the next couple of weeks. If you do feel worse, have fever greater than 100.4, shortness of breath, vomiting, or other significant changes, return to the ER at any time. Prescriptions: No Action acetaminophen 500 mg capsule 500 mg PO Q6H PRN aspirin 81 mg capsule 81 mg PO DAILY clonidine [[id number]] 0.3 mg/24 hr patch weekly 1 patch transdermal QWEEK famotidine 20 mg tablet 20 mg PO DAILY levothyroxine 50 mcg capsule 50 mcg PO DAILY mycophenolate mofetil [CellCept] 250 mg capsule 750 mg PO BID posaconazole [Noxafil] 100 mg tablet,delayed release (DR/EC) 200 mg PO DAILY prednisolone 5 mg tablet 5 mg PO DAILY Patient Comments: Take with 3 (1mg tab of prednisone) to equal 8mg. sulfamethoxazole-trimethoprim [Bactrim] 400-80 mg tablet 1 tab PO TID tacrolimus [Prograf] 0.5 mg capsule 0.5 mg PO BID ezetimibe 10 mg tablet 10 mg PO DAILY losartan 50 mg tablet 50 mg PO DAILY Follow Up/Referrals: Kaushal Salomon MD [Primary Care Provider] -
[2024-08-30 18:43] LABS: Basophils Percent Auto 0.1 % (0.0-3.0); Eosinophils Percent Auto 0.7 % (0.0-7.0); Hematocrit 35.7 % (37.0-53.0); Hemoglobin* 11.3 gm/dL (13.5-17.5); Immature Granulocytes Pct Auto 1.5 %; Lymphocytes Percent Auto 3.7 % (20-44); Mean Corpuscular HGB Conc 32 gm/dL (32-36); Mean Corpuscular Hemoglobin 28 pg (26-34); Mean Corpuscular Volume 88 fL (80-100); Monocytes Percent Auto 4.1 % (0.0-11.0); Neutrophils Percent Auto 89.9 % (42.0-72.0); Platelet Count* 323 K/uL (140-440); RDW Coefficient of Variation % 13.1 % (11.5-15.5); Red Blood Count 4.05 m/uL (4.30-5.90)
[2024-08-30 18:46] LABS: Slide Review Reflex No
[2024-08-30 18:54] LABS: Chloride* 102 mmol/L (96-114)
[2024-08-30 18:55] LABS: Potassium* 5.3 mmol/L (3.6-5.1); Sodium* 135 mmol/L (135-149)
[2024-08-30 18:57] LABS: Blood Urea Nitrogen* 28 mg/dL (7-30); Creatinine* 2.3 mg/dL (0.5-1.5); Est. Creatinine Clearance* 33.06; Estimated Glomerular Filt Rate 31 ml/min
[2024-08-30 18:58] LABS: Anion Gap 10 mEq/L (7-15); Calcium* 8.9 mg/dL (8.4-10.6); Carbon Dioxide* 23 mmol/L (20-32); Glucose* 124 mg/dL (60-115)
[2024-08-30 19:01] LABS: C Reactive Protein* 3.3 mg/dL (0.5-1.0)
[2024-08-30 19:13] VITALS: BP 144/98; PULSE 76; RESP 18; TEMP 36.3; O2SAT 98
== END 2024-08-30 19:21 | disposition home or self-care (01) ==
PROVIDERS: Emergency Provider Emergency Medicine; PCP Family Medicine
DX: R05.9 Cough, unspecified (principal)
CPT/HCPCS: 36415; 71046; 80048; 85025; 86140; 99283; 99284